=== PATIENT | female | born 1950 | race Caucasian/White ===

== ENCOUNTER → 2018-04-08 | Outpatient (CLI) | payer MEDICARE, OTHER ==
[~2018-04-08] MED LIST: AMINOPHYLLIN200 MG PO; INSULIN-HUMA100 U/ML SC; JANUVIA100 MG PO; LEVEMIR100 U/ML SC; LIPITOR10 MG PO; LISINOPRIL2.5 MG PO; NADOLOL20 MG PO; PAXIL20 MG PO; SYNTHROID,LEV100 MCG PO; ZYLOPRIM100 MG PO
[2018-04-08 12:05] LABS: BASO % 0.6 % (0.0-1.0); EOS # 0.1 10*3/uL (0.0-0.4); HEMATOCRIT 36.6 % (37.0-47.0); HEMOGLOBIN 11.7 g/dl (12.0-16.0); LYMPH # 2.1 10*3/uL (1.3-4.4); MEAN CELL VOLUME 99.2 fl (81.0-99.0); MEAN CORPUSCULAR HGB 31.7 pg (27.0-31.0); MEAN PLATELET VOLUME 9.8 fl (9.6-12.3); MONO # 0.5 10*3/uL (0.1-1.0); MONO % 6.4 % (3.0-9.0); NEUT # 4.4 10*3/uL (2.3-7.9); NEUT % 61.7 % (47.0-73.0); PLATELET COUNT AUTOMATED 303 10*3/uL (130-400); RED BLOOD COUNT 3.69 10*6/uL (4.10-5.10); RED CELL DISTRI WIDTH 13.2 % (0-14.5); WHITE BLOOD COUNT 7.1 10*3/uL (4.8-10.8)
[2018-04-08 12:31] LABS: ALBUMIN 3.9 gm/dl (3.1-4.5); CREATININE 1.23 mg/dL (0.55-1.02); TOTAL PROTEIN 7.3 gm/dL (6.4-8.2)
== END | disposition home or self-care (01) ==
LOC: LAB 11:16
PROVIDERS: Student in an Organized Health Care Education/Training Program
DX: A04.72 Enterocolitis due to Clostridium difficile, not specified as recurrent (principal)

== ENCOUNTER → 2018-05-15 | Outpatient (CLI) | payer MEDICARE, OTHER ==
[2018-05-15 13:18] LABS: ALBUMIN 3.8 gm/dl (3.1-4.5); CREATININE 1.52 mg/dL (0.55-1.02); POTASSIUM 4.8 mmol/L (3.5-5.1); TOTAL PROTEIN 6.9 gm/dL (6.4-8.2)
[2018-05-15 13:24] LABS: FREE T4 1.43 ng/dl (0.76-1.46); THYROID STIM HORMONE (HS) 0.326 uIU/ml (0.358-4.75)
[2018-05-16 07:11] LABS: FREE T3 010389 2.2 pg/mL (2.0-4.4)
== END | disposition home or self-care (01) ==
LOC: LAB 12:20
DX: C73 Malignant neoplasm of thyroid gland (principal); E11.65 Type 2 diabetes mellitus with hyperglycemia; E78.2 Mixed hyperlipidemia; E03.9 Hypothyroidism, unspecified

== ENCOUNTER → 2019-07-28 | Outpatient (CLI) | payer MEDICARE, OTHER | END | disposition home or self-care (01) | LOC: RAD 11:30 → LAB 12:07 | DX: Z13.820 Encounter for screening for osteoporosis (principal); E11.3513 Type 2 diabetes mellitus with proliferative diabetic retinopathy with macular edema, bilateral; E03.9 Hypothyroidism, unspecified; G62.9 Polyneuropathy, unspecified; E55.9 Vitamin D deficiency, unspecified; E78.2 Mixed hyperlipidemia; R79.89 Other specified abnormal findings of blood chemistry; I10 Essential (primary) hypertension; R79.82 Elevated C-reactive protein (CRP); Z78.0 Asymptomatic menopausal state; Z90.710 Acquired absence of both cervix and uterus ==

== ENCOUNTER → 2019-08-14 | Outpatient (CLI) | payer MEDICARE, OTHER ==
[2019-08-14 13:27] LABS: BASO # 0.1 10*3/uL (0.0-0.1); BASO % 0.9 % (0.0-1.0); EOS # 0.1 10*3/uL (0.0-0.4); EOS % 2.1 % (1.0-4.0); HEMOGLOBIN 11.8 g/dl (12.0-16.0); LYMPH % 35.4 % (27.0-41.0); MEAN CORPUSCULAR HGB 31.9 pg (27.0-31.0); MEAN CORPUSCULAR HGB CONC 31.9 g/dl (33.0-37.0); MEAN PLATELET VOLUME 10.1 fl (9.6-12.3); MONO # 0.5 10*3/uL (0.1-1.0); MONO % 8.4 % (3.0-9.0); PLATELET COUNT AUTOMATED 304 10*3/uL (130-400); RED CELL DISTRI WIDTH 12.8 % (0-14.5); WHITE BLOOD COUNT 5.7 10*3/uL (4.8-10.8)
[2019-08-14 13:51] LABS: ALBUMIN 3.7 gm/dl (3.1-4.5); CREATININE 1.48 mg/dL (0.55-1.02); FREE T4 1.13 ng/dl (0.76-1.46); TOTAL PROTEIN 7.2 gm/dL (6.4-8.2)
[2019-08-14 14:48] LABS: VITAMIN D, 25-HYDROXY 32.9 ng/mL (30-100)
[2019-08-14 14:49] LABS: PTH INTACT 71.2 pg/mL (18.5-88.0)
[2019-08-15 11:10] LABS: CREATININE,URINE 46.3 mg/dL (Not Estab.); MICRO ALBUMIN/CRE RATIO 172.1 (0.0-30.0)
== END | disposition home or self-care (01) ==
LOC: LAB 12:18
PROVIDERS: Internal Medicine Endocrinology, Diabetes & Metabolism; Nurse Practitioner Family
DX: E03.9 Hypothyroidism, unspecified (principal); E11.3513 Type 2 diabetes mellitus with proliferative diabetic retinopathy with macular edema, bilateral; E55.9 Vitamin D deficiency, unspecified; G62.9 Polyneuropathy, unspecified; R79.82 Elevated C-reactive protein (CRP)

== ENCOUNTER → 2019-08-20 | Outpatient (CLI) | payer MEDICARE, OTHER | END | disposition home or self-care (01) | LOC: LAB 19:04 | PROVIDERS: Nurse Practitioner Family | DX: R19.7 Diarrhea, unspecified (principal) ==

== ENCOUNTER → 2019-12-23 | Outpatient (CLI) | payer MEDICARE, OTHER ==
[~2019-12-23] MED LIST changes: +AMLODIPINE BESYL5 MG PO; +BETIMOL5 M1 OP; +CYTOMEL5 MCG PO; +HUMALOG100 UNIT/2 SQ; -INSULIN-HUMA100 U/ML SC; +PROTONIX40 MG PO; +ROSUVASTATIN CAL5 MG PO; -SYNTHROID,LEV100 MCG PO; +Synthroid,Levo75 MCG PO; +TRESIBA100 UNIT/1 SQ; +XALATAN 0.005%2.5 ML INTRAOC
[2019-12-23 15:17] LABS: IRON 68 ug/dL (50-170); TOTAL IRON BINDING CAPACITY 258 ug/dl (250-450)
[2019-12-23 15:19] LABS: ALBUMIN 3.8 gm/dl (3.1-4.5); CREATININE 1.49 mg/dL (0.55-1.02); TOTAL PROTEIN 7.1 gm/dL (6.4-8.2)
[2019-12-23 15:23] LABS: FREE T4 1.27 ng/dl (0.76-1.46); THYROID STIM HORMONE (HS) 0.791 uIU/ml (0.358-4.75)
[2019-12-23 15:27] LABS: VITAMIN D, 25-HYDROXY 44.1 ng/mL (30-100)
[2019-12-24 10:11] LABS: CREATININE,URINE 111.9 mg/dL (Not Estab.)
== END | disposition home or self-care (01) ==
LOC: LAB 13:45
PROVIDERS: Internal Medicine Endocrinology, Diabetes & Metabolism; Nurse Practitioner Family
DX: E11.3513 Type 2 diabetes mellitus with proliferative diabetic retinopathy with macular edema, bilateral (principal); E03.9 Hypothyroidism, unspecified; E55.9 Vitamin D deficiency, unspecified; D64.9 Anemia, unspecified

== ENCOUNTER 2019-12-26 16:06 | Inpatient (IN) | payer MEDICARE, OTHER ==
[~2019-12-26] VITALS: Ht 167.6 cm; Wt 78.0 kg
[~2019-12-26 16:06] MED LIST changes: -AMLODIPINE BESYL5 MG PO; -BETIMOL5 M1 OP; -CYTOMEL5 MCG PO; -PROTONIX40 MG PO; -ROSUVASTATIN CAL5 MG PO; -TRESIBA100 UNIT/1 SQ; -XALATAN 0.005%2.5 ML INTRAOC
[2019-12-26 16:17] VITALS: BP 107/53
[2019-12-26 16:19] VITALS: BP 159/72
--- NOTE | 2019-12-26 18:13 | NUR ---
PT UNABLE TO URINATE AT THIS TIME. URINE CUP PROVIDED. IV FLUIDS INFUSING.
[2019-12-26 18:15] LABS: BASO # 0.1 10*3/uL (0.0-0.1); BASO % 0.6 % (0.0-1.0); EOS # 0.1 10*3/uL (0.0-0.4); EOS % 0.8 % (1.0-4.0); HEMATOCRIT 37.9 % (37.0-47.0); HEMOGLOBIN 12.2 g/dl (12.0-16.0); LYMPH # 1.2 10*3/uL (1.3-4.4); LYMPH % 14.4 % (27.0-41.0); MEAN CELL VOLUME 97.7 fl (81.0-99.0); MEAN CORPUSCULAR HGB 31.4 pg (27.0-31.0); MEAN CORPUSCULAR HGB CONC 32.2 g/dl (33.0-37.0); MEAN PLATELET VOLUME 9.8 fl (9.6-12.3); MONO # 0.5 10*3/uL (0.1-1.0); MONO % 5.6 % (3.0-9.0); NEUT # 6.7 10*3/uL (2.3-7.9); NEUT % 78.4 % (47.0-73.0); PLATELET COUNT AUTOMATED 322 10*3/uL (130-400); RED BLOOD COUNT 3.88 10*6/uL (4.10-5.10); RED CELL DISTRI WIDTH 12.2 % (0-14.5); WHITE BLOOD COUNT 8.6 10*3/uL (4.8-10.8)
[2019-12-26 18:32] LABS: ALKALINE PHOSPHATASE 94 U/L (45-117); BUN 39 mg/dl (7-24); CHLORIDE 108 mmol/L (98-107); CREATININE 1.31 mg/dL (0.55-1.02); LIPASE 277 U/L (73-393); SGOT/AST 231 IU/L (3-35); SGPT/ALT 132 U/L (12-78); SODIUM 141 mmol/L (136-145); TOTAL PROTEIN 7.2 gm/dL (6.4-8.2)
[2019-12-26 18:34] LABS: ACT PARTIAL THROMBO TIME 25.1 SECONDS (20.0-32.1); INTERNATIONAL NORM RATIO 0.9 (2.0-3.5); TROPONIN I < 0.015 ng/ml (<0.045)
--- NOTE | 2019-12-26 18:44 | NUR ---
PT NOTES SHE MAY BE ABLE TO URINATE SOON, BUT STILL UNABLE AT THIS TIME.
[2019-12-26 20:00] VITALS: BP 182/80
[2019-12-26 21:30] VITALS: BP 182/80
--- NOTE | 2019-12-26 21:30 | NUR ---
Time: 2129 A 69 year old FEMALE admitted to 5E under services of MISTY REYNOSO DO. Pt. arrived via bed from ER. Chief complaint: ABDOMINAL PAIN. JERMAN JOSEPH
--- NOTE | 2019-12-26 21:42 | NUR ---
DR. GALLARDO CALLED AWARE OF PT CONSULT. OK FOR REGULAR DIET IF NO NAUSEA.
[2019-12-26] MEDS ORDERED: TRESIBA100 UNIT/1 SQ (22:21)
[2019-12-26] MEDS ORDERED: XALATAN 0.005%2.5 ML INTRAOC (22:22)
[2019-12-26] MEDS ORDERED: BETIMOL5 M1 OP (22:22)
[2019-12-26] MEDS ORDERED: CYTOMEL5 MCG PO (22:23)
--- NOTE | 2019-12-26 22:40 | NUR ---
DR. JOHNSON ON THE FLOOR TO SEE PT. AWARE PT MEDICATIONS VERIFIED AND BP 182/80 MANUALLY.
--- NOTE | 2019-12-26 23:10 | NUR ---
RESTING IN BED TALKING WITH DR. JOHNSON. IVF INFUSING WITH NO PROBLEM. BSG-203, SEE EMAR. CALL LIGHT IN REACH.
[2019-12-26 23:57] VITALS: BP 185/72
[2019-12-27] VITALS (8 sets, daily range): BP systolic 144–182; BP diastolic 60–88
--- NOTE | 2019-12-27 00:05 | NUR ---
PT ASSISTED TO BATHROOM AND BACK TO BED WITH STANDBY ASSIST. RESTING BACK IN BED. BP 182/88, PER DR. EASON REQUEST HE WAS MADE AWARE.
[2019-12-27 00:30] LABS: BILIRUBIN NEGATIVE (NEGATIVE); BLOOD TRACE-INTACT (NEGATIVE); CLARITY CLEAR (CLEAR); COLOR YELLOW (YELLOW); GLUCOSE NEGATIVE (NEGATIVE); KETONE NEGATIVE (NEGATIVE); LEUKO ESTERASE NEGATIVE (NEGATIVE); NITRITE NEGATIVE (NEGATIVE); UROBILINOGEN 0.2 E.U./dl (0.2-1.0)
--- NOTE | 2019-12-27 00:34 | NUR ---
CALLED DR. EASON WITH BP OF 178/80. ORDER TAKEN AND REVIEWED.
--- NOTE | 2019-12-27 01:10 | NUR ---
CALLED [facility] TO VERIFY MEDICATION NEEDED TO GIVE. GAVE HYDRALAZINE IV PER ORDER, SEE EMAR. PT TOLERATED. WILL MONITOR. CALL LIGHT IN REACH.
--- NOTE | 2019-12-27 06:00 | NUR ---
PT TOLERATED ROUTINE MED WITH NO PROBLEM. IVF INFUSING WITH NO PROBLEM. CALL LIGHT IN REACH.
[2019-12-27 06:58] LABS: BASO % 0.4 % (0.0-1.0); EOS # 0.1 10*3/uL (0.0-0.4); HEMATOCRIT 33.4 % (37.0-47.0); HEMOGLOBIN 10.9 g/dl (12.0-16.0); LYMPH # 1.6 10*3/uL (1.3-4.4); LYMPH % 31.6 % (27.0-41.0); MEAN CELL VOLUME 96.8 fl (81.0-99.0); MEAN CORPUSCULAR HGB 31.6 pg (27.0-31.0); MEAN CORPUSCULAR HGB CONC 32.6 g/dl (33.0-37.0); MEAN PLATELET VOLUME 10.1 fl (9.6-12.3); MONO # 0.6 10*3/uL (0.1-1.0); MONO % 11.1 % (3.0-9.0); NEUT # 2.8 10*3/uL (2.3-7.9); NEUT % 55.7 % (47.0-73.0); PLATELET COUNT AUTOMATED 296 10*3/uL (130-400); RED BLOOD COUNT 3.45 10*6/uL (4.10-5.10); RED CELL DISTRI WIDTH 12.3 % (0-14.5)
[2019-12-27 07:29] LABS: POTASSIUM 3.8 mmol/L (3.5-5.1)
[2019-12-27 07:37] LABS: ALBUMIN 3.3 gm/dl (3.1-4.5); CREATININE 1.21 mg/dL (0.55-1.02); PHOSPHOROUS 2.7 mg/dL (2.5-4.9); TOTAL PROTEIN 6.2 gm/dL (6.4-8.2)
--- NOTE | 2019-12-27 10:26 | NUR ---
Aitchbone Breaker in to talk to patient. Patient states lives [facility] with . There are 2 steps in the home. Physician: Pallavi Plaza CNP Pharmacy: [facility] Home health services: no Patient's level of ADLs: INDEPENDENT Patient has working utilities: yes DME: no Follow-up physician's appointment after d/c: yes Does patient want to access PORTAL?: no Discharge plan Patient resides at home with her . Pt is independent with ADLS. Anticipate pt returning home with no needs. JULY LEIGH
--- NOTE | 2019-12-27 21:32 | NUR ---
CALLED DR. MARTINEZ MADE AWARE PT BP 172/84 ALSO PT WAS ANXIOUS ABOUT NOT HAVING INSULIN SINCE ADMISSION. WHICH SEEMS TO BE MAKING HER BP ELEVATE. ORDERS TAKEN AND REVIEWED.
--- NOTE | 2019-12-27 22:14 | NUR ---
CALLED DR. MARTINEZ MADE AWARE BP 180/86, ORDERS TAKEN AND REVIEWED.
--- NOTE | 2019-12-27 22:40 | NUR ---
ADMINISTERED HYDRALAZINE IV PER ORDER, SEE EMAR. IVF INFUSING WITH NO PROBLEM. CALL LIGHT IN REACH. WILL CON'T TO MONITOR.
[2019-12-28] VITALS: BP 128/77; BP 167/73
--- NOTE | 2019-12-28 | NUR ---
PT SLEEPING IN BED. RESP-EASY AND REGULAR. IVF INFUSING WITH NO PROBLEM. CALL LIGHT IN REACH. SEE SHIFT ASSESSMENT.
--- NOTE | 2019-12-28 06:00 | NUR ---
TOLERATED ROUTINE MED WITH NO PROBLEM. BSG-142, SEE EMAR. NO C/O AT THIS TIME. CALL LIGHT IN REACH. BED ALARM ON.
[2019-12-28 06:38] LABS: BASO % 0.7 % (0.0-1.0); EOS # 0.1 10*3/uL (0.0-0.4); EOS % 0.9 % (1.0-4.0); HEMATOCRIT 32.5 % (37.0-47.0); HEMOGLOBIN 10.7 g/dl (12.0-16.0); LYMPH # 1.3 10*3/uL (1.3-4.4); MEAN CELL VOLUME 97.9 fl (81.0-99.0); MEAN CORPUSCULAR HGB 32.2 pg (27.0-31.0); MEAN CORPUSCULAR HGB CONC 32.9 g/dl (33.0-37.0); MONO # 0.7 10*3/uL (0.1-1.0); MONO % 12.9 % (3.0-9.0); NEUT # 3.6 10*3/uL (2.3-7.9); NEUT % 62.3 % (47.0-73.0); PLATELET COUNT AUTOMATED 270 10*3/uL (130-400); RED BLOOD COUNT 3.32 10*6/uL (4.10-5.10); RED CELL DISTRI WIDTH 12.6 % (0-14.5); WHITE BLOOD COUNT 5.8 10*3/uL (4.8-10.8)
[2019-12-28 06:54] LABS: ALBUMIN 3.1 gm/dl (3.1-4.5); CREATININE 1.23 mg/dL (0.55-1.02); TOTAL PROTEIN 5.8 gm/dL (6.4-8.2)
[2019-12-28 08:00] VITALS: BP 117/88; BP 120/88
--- NOTE | 2019-12-28 08:08 | NUR ---
24 HR chart check completed.
--- NOTE | 2019-12-28 09:00 | NUR ---
DR ADAME DISCUSSING PLAN OF CARE WITH PATIENT
--- NOTE | 2019-12-28 09:30 | NUR ---
RESTING IN BED WITH NO ACUTE DISTRESS NOTED. RESPIRATIONS EASY. LUNGS DIMINISHED, CLEAR. PULSE OX 98% RA. ABD SOFT WITH HYPERACTIVE BOWEL SOUNDS, DENIES N/V. DIARRHEA 12/27 BUT NONE TODAY. IV FLUIDS INFUSING PER ORDER. CALL LIGHT WITHIN REACH. NO VOICED COMPLAINTS
--- NOTE | 2019-12-28 09:35 | NUR ---
PATIENT VOICES DESIRE FOR DISCHARGE - LABS AND PLAN OF CARE REVIEWED WITH PATIENT TO EXPLAIN NEED TO REMAIN IN-PT. PATIENT CONCERNED WITH TAKING NEWLY PRESCRIBED NORVASC. EXPLAINED TO PATIENT WE COULD ADMINISTER ROUTINE 1000 MEDS, RE-EVAL BP AT 1200 AND DETERMINE WHETHER TO ADMINISTER NORVASC AT THAT TIME, PATIENT AGREEABLE. WILL MONITOR
--- NOTE | 2019-12-28 10:30 | NUR ---
DR FITZPATRICK AND RESIDENTS HERE TO ASSESS PATIENT AND DISCUSS PLAN OF CARE
[2019-12-28] MEDS ORDERED: ROSUVASTATIN CAL5 MG PO (11:44)
[2019-12-28 12:00] VITALS: BP 138/82; BP 176/71
--- NOTE | 2019-12-28 12:30 | NUR ---
BP 138/82. PATIENT DECLINES NORVASC. INSISTS BP ELEVATED D/T STRESS OF BEING IN HOSPITAL. WILL CONTINUE TO MONITOR BP
--- NOTE | 2019-12-28 13:00 | NUR ---
VISITING WITH . NO DISTRESS NOTED. IV FLUIDS MAINTAINED.
--- NOTE | 2019-12-28 14:00 | NUR ---
ATTEMPTED TO REACH DR TRUONG FOR CONSULT. PATIENT REQUESTING D/C. WILL F/U OUT-PT WITH OF CHOICE
[2019-12-28] MEDS ORDERED: AMLODIPINE BESYL5 MG PO (15:30)
[2019-12-28 16:00] VITALS: BP 177/69
--- NOTE | 2019-12-28 16:30 | NUR ---
DISCHARGE INSTRUCTIONS REVIEWED WITH PATIENT AND . STRESSED IMPORTANCE OF FOLLOW-UP CARE AND LABS IN AM, PATIENT VOICED UNDERSTANDING
--- NOTE | 2019-12-28 16:50 | NUR ---
Discharge instructions reviewed with patient/family. Patient receptive and verbalizes understanding. Written instructions given to patient/family. PATIENT DISCHARGED VIA WC IN CARE OF . LEAH QUAN
== END 2019-12-28 17:06 | disposition home or self-care (01) | DRG 446 ==
LOC: ED 16:06 → EDHOLD 19:35 → 5E 20:12
PROVIDERS: Emergency Medicine; Internal Medicine; Student in an Organized Health Care Education/Training Program; ADMIT Emergency Medicine
DX: K80.20 Calculus of gallbladder without cholecystitis without obstruction (principal); R74.0 Nonspecific elevation of levels of transaminase and lactic acid dehydrogenase [LDH]; I16.0 Hypertensive urgency; E86.0 Dehydration; D72.9 Disorder of white blood cells, unspecified; D72.810 Lymphocytopenia; E87.8 Other disorders of electrolyte and fluid balance, not elsewhere classified; K83.8 Other specified diseases of biliary tract; R73.9 Hyperglycemia, unspecified; N20.0 Calculus of kidney; N18.3 Chronic kidney disease, stage 3 (moderate); E78.5 Hyperlipidemia, unspecified; I12.9 Hypertensive chronic kidney disease with stage 1 through stage 4 chronic kidney disease, or unspecified chronic kidney disease; G62.9 Polyneuropathy, unspecified; Z88.1 Allergy status to other antibiotic agents; Z90.710 Acquired absence of both cervix and uterus; Z87.440 Personal history of urinary (tract) infections; Z98.49 Cataract extraction status, unspecified eye; Z83.79 Family history of other diseases of the digestive system; Z79.899 Other long term (current) drug therapy

== ENCOUNTER → 2019-12-29 | Outpatient (CLI) | payer MEDICARE, OTHER ==
[~2019-12-29] MED LIST changes: +AMLODIPINE BESYL5 MG PO; +BETIMOL5 M1 OP; +CYTOMEL5 MCG PO; +PROTONIX40 MG PO; +ROSUVASTATIN CAL5 MG PO; +TRESIBA100 UNIT/1 SQ; +XALATAN 0.005%2.5 ML INTRAOC
[2019-12-29 10:07] LABS: BASO # 0.1 10*3/uL (0.0-0.1); BASO % 0.9 % (0.0-1.0); EOS # 0.1 10*3/uL (0.0-0.4); EOS % 0.9 % (1.0-4.0); HEMATOCRIT 35.7 % (37.0-47.0); HEMOGLOBIN 11.5 g/dl (12.0-16.0); LYMPH # 1.7 10*3/uL (1.3-4.4); LYMPH % 26.2 % (27.0-41.0); MEAN CELL VOLUME 98.3 fl (81.0-99.0); MEAN CORPUSCULAR HGB 31.7 pg (27.0-31.0); MEAN CORPUSCULAR HGB CONC 32.2 g/dl (33.0-37.0); MEAN PLATELET VOLUME 10.1 fl (9.6-12.3); MONO % 15.2 % (3.0-9.0); NEUT # 3.7 10*3/uL (2.3-7.9); NEUT % 56.3 % (47.0-73.0); PLATELET COUNT AUTOMATED 296 10*3/uL (130-400); RED BLOOD COUNT 3.63 10*6/uL (4.10-5.10); RED CELL DISTRI WIDTH 12.8 % (0-14.5); WHITE BLOOD COUNT 6.5 10*3/uL (4.8-10.8)
[2019-12-29 10:43] LABS: ALBUMIN 3.4 gm/dl (3.1-4.5); CREATININE 1.71 mg/dL (0.55-1.02); POTASSIUM 4.1 mmol/L (3.5-5.1)
[2019-12-29 10:45] LABS: TOTAL PROTEIN 6.4 gm/dL (6.4-8.2)
== END | disposition home or self-care (01) ==
LOC: LAB 09:28
PROVIDERS: Student in an Organized Health Care Education/Training Program
DX: K80.50 Calculus of bile duct without cholangitis or cholecystitis without obstruction (principal)

== ENCOUNTER 2019-12-30 12:22 | Inpatient (IN) | payer MEDICARE, OTHER ==
[~2019-12-30] VITALS: Ht 167.6 cm; Wt 74.4 kg
[~2019-12-30 12:22] MED LIST changes: -PROTONIX40 MG PO
[2019-12-30 12:45] VITALS: BP 163/69
[2019-12-30 16:00] VITALS: BP 185/72
[2019-12-30 17:30] VITALS: BP 180/94
[2019-12-30 19:40] VITALS: BP 174/86
[2019-12-30 22:00] VITALS: BP 154/88
[2019-12-31] VITALS (11 sets, daily range): BP systolic 146–190; BP diastolic 68–91
[2019-12-31 06:20] LABS: BASO # 0.1 10*3/uL (0.0-0.1); BASO % 1.2 % (0.0-1.0); EOS # 0.1 10*3/uL (0.0-0.4); EOS % 1.6 % (1.0-4.0); HEMATOCRIT 32.7 % (37.0-47.0); HEMOGLOBIN 10.7 g/dl (12.0-16.0); LYMPH # 1.4 10*3/uL (1.3-4.4); LYMPH % 27.7 % (27.0-41.0); MEAN CELL VOLUME 95.9 fl (81.0-99.0); MEAN CORPUSCULAR HGB 31.4 pg (27.0-31.0); MEAN CORPUSCULAR HGB CONC 32.7 g/dl (33.0-37.0); MEAN PLATELET VOLUME 10.3 fl (9.6-12.3); MONO # 0.8 10*3/uL (0.1-1.0); NEUT # 2.6 10*3/uL (2.3-7.9); NEUT % 52.7 % (47.0-73.0); PLATELET COUNT AUTOMATED 296 10*3/uL (130-400); RED BLOOD COUNT 3.41 10*6/uL (4.10-5.10); RED CELL DISTRI WIDTH 13.2 % (0-14.5); WHITE BLOOD COUNT 4.9 10*3/uL (4.8-10.8)
[2019-12-31 06:56] LABS: ALBUMIN 3.2 gm/dl (3.1-4.5); POTASSIUM 3.5 mmol/L (3.5-5.1)
[2019-12-31 07:01] LABS: CREATININE 1.27 mg/dL (0.55-1.02); PHOSPHOROUS 2.5 mg/dL (2.5-4.9)
[2020-01-01] VITALS: BP 153/76
[2020-01-01 06:50] LABS: BASO # 0.1 10*3/uL (0.0-0.1); BASO % 0.9 % (0.0-1.0); EOS # 0.1 10*3/uL (0.0-0.4); EOS % 0.9 % (1.0-4.0); HEMATOCRIT 32.3 % (37.0-47.0); HEMOGLOBIN 10.2 g/dl (12.0-16.0); LYMPH # 1.4 10*3/uL (1.3-4.4); LYMPH % 24.4 % (27.0-41.0); MEAN CELL VOLUME 97.6 fl (81.0-99.0); MEAN CORPUSCULAR HGB 30.8 pg (27.0-31.0); MEAN CORPUSCULAR HGB CONC 31.6 g/dl (33.0-37.0); MONO # 0.7 10*3/uL (0.1-1.0); MONO % 11.9 % (3.0-9.0); NEUT # 3.4 10*3/uL (2.3-7.9); NEUT % 61.4 % (47.0-73.0); PLATELET COUNT AUTOMATED 309 10*3/uL (130-400); RED BLOOD COUNT 3.31 10*6/uL (4.10-5.10); RED CELL DISTRI WIDTH 13.4 % (0-14.5); WHITE BLOOD COUNT 5.5 10*3/uL (4.8-10.8)
[2020-01-01 07:38] LABS: ALBUMIN 3.1 gm/dl (3.1-4.5); BILIRUBIN, DIRECT 2.1 mg/dL (0.0-0.2); TOTAL PROTEIN 5.8 gm/dL (6.4-8.2)
[2020-01-01 12:00] VITALS: BP 157/68
[2020-01-01] MEDS ORDERED: PROTONIX40 MG PO (14:48)
== END 2020-01-01 15:47 | disposition home or self-care (01) | DRG 445 ==
LOC: 5E 12:22
PROVIDERS: Registered Nurse; ADMIT Internal Medicine
PROC: 0F798DZ Dilation of Common Bile Duct with Intraluminal Device, Via Natural or Artificial Opening Endoscopic (ICD-10-PCS; principal; 2019-12-31)
PROC: BF141ZZ Fluoroscopy of Gallbladder, Bile Ducts and Pancreatic Ducts using Low Osmolar Contrast (ICD-10-PCS; principal; 2019-12-31)
DX: K80.63 Calculus of gallbladder and bile duct with acute cholecystitis with obstruction (principal); E44.0 Moderate protein-calorie malnutrition; N18.3 Chronic kidney disease, stage 3 (moderate); E11.22 Type 2 diabetes mellitus with diabetic chronic kidney disease; E11.65 Type 2 diabetes mellitus with hyperglycemia; E03.9 Hypothyroidism, unspecified; E78.5 Hyperlipidemia, unspecified; M10.9 Gout, unspecified; I12.9 Hypertensive chronic kidney disease with stage 1 through stage 4 chronic kidney disease, or unspecified chronic kidney disease; F41.9 Anxiety disorder, unspecified; Z68.26 Body mass index [BMI] 26.0-26.9, adult; Z98.49 Cataract extraction status, unspecified eye; Z88.1 Allergy status to other antibiotic agents; Z88.8 Allergy status to other drugs, medicaments and biological substances; Z83.79 Family history of other diseases of the digestive system; Z79.4 Long term (current) use of insulin; Z79.899 Other long term (current) drug therapy; R74.0 Nonspecific elevation of levels of transaminase and lactic acid dehydrogenase [LDH]

== ENCOUNTER 2020-02-15 20:24 | Inpatient (IN) | payer MEDICARE, OTHER ==
[~2020-02-15] VITALS: Ht 167.6 cm; Wt 68.3 kg
[~2020-02-15 20:24] MED LIST changes: +PROTONIX40 MG PO
[2020-02-15 20:52] VITALS: BP 148/70
[2020-02-15 21:29] VITALS: BP 132/67
--- NOTE | 2020-02-15 21:34 | NUR ---
PT HAD LARGE EMESIS OF APPROX 250 CC GREENISH LIQUID. JEAN PAUL VALLEJO RN.
[2020-02-15 22:16] LABS: HEMATOCRIT 30.6 % (37.0-47.0); MEAN CELL VOLUME 91.6 fl (81.0-99.0); MEAN CORPUSCULAR HGB 30.2 pg (27.0-31.0); MEAN PLATELET VOLUME 10.8 fl (9.6-12.3); PLATELET COUNT AUTOMATED 241 10*3/uL (130-400); RED BLOOD COUNT 3.34 10*6/uL (4.10-5.10); RED CELL DISTRI WIDTH 13.8 % (0-14.5); WHITE BLOOD COUNT 25.7 10*3/uL (4.8-10.8)
[2020-02-15 22:22] VITALS: BP 130/62
--- NOTE | 2020-02-15 22:22 | NUR ---
PT STATES SHE IS FEELING BETTER AT THIS TIME. IV INFUSING JEAN PAUL VALLEJO RN.
[2020-02-15 22:31] LABS: ACT PARTIAL THROMBO TIME 30.8 SECONDS (20.0-32.1); INTERNATIONAL NORM RATIO 1.1 (2.0-3.5)
[2020-02-15 22:31] LABS: BILIRUBIN NEGATIVE (NEGATIVE); BLOOD NEGATIVE (NEGATIVE); CLARITY SL CLOUDY (CLEAR); COLOR YELLOW (YELLOW); GLUCOSE NEGATIVE (NEGATIVE); KETONE NEGATIVE (NEGATIVE); LEUKO ESTERASE NEGATIVE (NEGATIVE); NITRITE NEGATIVE (NEGATIVE); UROBILINOGEN 0.2 E.U./dl (0.2-1.0)
[2020-02-15 22:34] LABS: ALBUMIN 1.9 gm/dl (3.1-4.5); CREATININE 2.41 mg/dL (0.55-1.02); POTASSIUM 3.8 mmol/L (3.5-5.1); TOTAL PROTEIN 6.3 gm/dL (6.4-8.2); TROPONIN I 0.029 ng/ml (<0.045)
[2020-02-15 22:35] LABS: BACTERIA 2+
[2020-02-15 22:42] LABS: BURR CELLS FEW; PLATELET SUFFICIENCY NORMAL (NORMAL); TOTAL CELLS COUNTED 100 #CELLS
[2020-02-16] VITALS (14 sets, daily range): BP systolic 113–130; BP diastolic 50–83
--- NOTE | 2020-02-16 01:06 | NUR ---
CALLED IN. PATIENT NOT YET ON FLOOR, BUT NEW ORDERS RECEIVED.
--- NOTE | 2020-02-16 02:37 | NUR ---
Time: 224 A 69 year old FEMALE admitted to 4E under services of CARLA CESPEDES DO. Pt. arrived via stretcher from ER. Chief complaint: WEAKNESS, DX: BILOMA FOLLOWING SURGERY, HEPATIC ABSCESS ENA GUTIERREZ
[2020-02-16] MEDS ORDERED: CRESTOR5 MG PO (02:46)
--- NOTE | 2020-02-16 02:49 | NUR ---
MED REC UP TO DATE PER PT RECALL.
--- NOTE | 2020-02-16 06:04 | NUR ---
NOTIFIED OF BSG 304. QUESTIONED WHETHER TO ORDER PATIENT'S HOME MEDS OR SLIDING SCALE. PER ORDER HOSPITALIST SLIDING SCALE #2. ALSO DISCUSSED PATIENT'S "ALMOST FALL" 2 WEEKS AGO RESULTING IN L ANKLE INJURY. INSTRUCTED TO GET XRAYS OF PT'S L ANKLE.
[2020-02-16 06:05] LABS: HEMATOCRIT 29.2 % (37.0-47.0); MEAN CELL VOLUME 91.3 fl (81.0-99.0); MEAN CORPUSCULAR HGB 29.7 pg (27.0-31.0); MEAN CORPUSCULAR HGB CONC 32.5 g/dl (33.0-37.0); PLATELET COUNT AUTOMATED 232 10*3/uL (130-400); RED CELL DISTRI WIDTH 13.9 % (0-14.5); WHITE BLOOD COUNT 24.5 10*3/uL (4.8-10.8)
[2020-02-16 06:23] LABS: ALBUMIN 1.9 gm/dl (3.1-4.5); CREATININE 2.32 mg/dL (0.55-1.02); PHOSPHOROUS 5.5 mg/dL (2.5-4.9); POTASSIUM 3.9 mmol/L (3.5-5.1); TOTAL PROTEIN 6.3 gm/dL (6.4-8.2)
--- NOTE | 2020-02-16 06:43 | NUR ---
BSG 304. SLIDING SCALE CALLS FOR 15 UNITS. PT IS NPO. PT CONCERNED THAT 15 UNITS WILL DROP HER BS TOO LOW. PT NORMALLY TAKES 5 UNITS BRYAN TID-AC. AGREES ONLY TO TAKE 5 UNITS AT THIS TIME.
[2020-02-16 07:03] LABS: POLYCHROMASIA SLIGHT; TOTAL CELLS COUNTED 100 #CELLS
[2020-02-16 07:04] LABS: PLATELET SUFFICIENCY NORMAL (NORMAL)
[2020-02-16 07:05] LABS: VACUOLATION OF NEUTROPHILS SLIGHT
--- NOTE | 2020-02-16 08:31 | NUR ---
PT RESTING IN BED, EYES CLOSED NO DISTRESS NOTED/ CALL LIGHT WITHIN REACH WILL MONITOR
--- NOTE | 2020-02-16 09:44 | NUR ---
CALLED AND SPOKE WITH DR HERNANDEZ REGARDING CONSULT HE STATES THAT HE IS NOT SUPPOSE TO BE CONSULTED I ALSO SPOKE WITH REYNA REGARDING CONSULT
--- NOTE | 2020-02-16 10:09 | NUR ---
DR ORELLANA NOTIFIED OF XRAY OF ANKLE RESULTS
--- NOTE | 2020-02-16 10:25 | NUR ---
ATTEMPTED TO CALL DR GARCIA REGARDING CONSULT, XRAY RESULTS, POSITIVE BC X2 AWAITING CALL BACK
--- NOTE | 2020-02-16 11:10 | NUR ---
ATTEMPTED TO CALL REYNA X 2 FOR DIET ORDER AND TO NOTIFY OF POSITIVE BC
--- NOTE | 2020-02-16 11:35 | NUR ---
SPOKE WITH DR BEYER REGARDING PT DIET AND POSITIVE BC
--- NOTE | 2020-02-16 11:54 | NUR ---
SPOKE WITH DR GUZMAN RESIDENT REGARDING NEW CONSULT
--- NOTE | 2020-02-16 13:06 | NUR ---
DR GARCIA HERE TO SEE PT
--- NOTE | 2020-02-16 16:00 | NUR ---
FRANK FLUSHED ORDERED
--- NOTE | 2020-02-16 18:58 | NUR ---
DR SRINIVASAN NOTIFIED OF ANKLE FLUID RESULTS CALLED TO ME
--- NOTE | 2020-02-16 21:25 | NUR ---
PT REFUSING COVERAGE FOR BSG 263 DUE TO NPO STATUS. 30 CCs DRAINED FROM FRANK DRAIN. WILL IRRIGATE IN AM PER BID ORDER.
--- NOTE | 2020-02-16 23:06 | NUR ---
SCHEDULED PO ULTRAM ADMINISTERED PER ORDER. GIVEN WITH SMALL SIPS OF WATER. PT C/O PAIN IN ABD RATED 4/10. WILL MONITOR. CALL LIGHT IN REACH.
[2020-02-17] VITALS (10 sets, daily range): BP systolic 91–123; BP diastolic 46–57
--- NOTE | 2020-02-17 01:10 | NUR ---
PT ASLEEP IN BED. EASILY AROUSABLE. DENIES ANY NEEDS AT PRESENT TIME. WILL MONITOR. CALL LIGHT IN REACH.
--- NOTE | 2020-02-17 02:10 | NUR ---
NOTIFIED OF POSITIVE BC. NEW ORDERS RECEIVED FOR ANOTHER SET OF BLOOD CULTURES TO BE DRAWN.
--- NOTE | 2020-02-17 03:03 | NUR ---
GABRIELLA FROM LAB CALLED WITH CRITICAL RESULT OF POSITIVE AEROBIC BLOOD CULTURES FOR GRAM + COCCI IN CLUSTERS.
--- NOTE | 2020-02-17 03:06 | NUR ---
DR. MARTINEZ NOTIFIED OF POSITIVE BLOOD CULTURE RESULTS, NO ORDERS RECEIVED AT THIS TIME.
[2020-02-17 06:09] LABS: HEMATOCRIT 25.5 % (37.0-47.0); MEAN CELL VOLUME 91.1 fl (81.0-99.0); MEAN CORPUSCULAR HGB CONC 32.9 g/dl (33.0-37.0); MEAN PLATELET VOLUME 11.2 fl (9.6-12.3); PLATELET COUNT AUTOMATED 243 10*3/uL (130-400); RED CELL DISTRI WIDTH 14.4 % (0-14.5); WHITE BLOOD COUNT 24.6 10*3/uL (4.8-10.8)
--- NOTE | 2020-02-17 06:20 | NUR ---
PT AGREES TO TAKE ONLY 5 UNITS INSULIN FOR BSG 284. 5 UNITS ADMINISTERED. DRAIN EMPTIED. 10 CCs BROWN/YELLOW DRAINAGE NOTED. PIGTAIL DRAIN IRRIGATED WITH 20 CCs PER ORDER. 20 CCs RESIDUAL NOTED. FRANK DRAIN RECONNECTED. PT DENIES ANY PAIN/NEEDS AT THIS TIME. WILL MONITOR. CALL LIGHT IN REACH. BED ALARM INTACT.
[2020-02-17 06:36] LABS: CREATININE 3.45 mg/dL (0.55-1.02); POTASSIUM 3.8 mmol/L (3.5-5.1)
[2020-02-17 06:48] LABS: PLATELET SUFFICIENCY NORMAL (NORMAL); TOTAL CELLS COUNTED 100 #CELLS; TOXIC GRANULATION SLIGHT
--- NOTE | 2020-02-17 06:58 | NUR ---
CALLED AND REQUESTED PATIENT BE KEPT NPO FOR POSSIBLE I&D WASH OUT OF L ANKLE EITHER TODAY OR TOMORROW. NPO STATUS CONTINUED. AM SHIFT RN NOTIFIED.
--- NOTE | 2020-02-17 09:41 | NUR ---
DR. KURTZ'S ANSWERING SERVICE NOTIFIED OF CONSULT RE: WORSENING KIDNEY FAILURE.
--- NOTE | 2020-02-17 11:34 | NUR ---
Bar Host in to talk to patient. Patient states lives at HOME with . There are 15 steps in the home. Physician: JUAN RAMON CAVAZOS Pharmacy: [facility] services: NONE Patient's level of ADLs: INDEPENDENT Patient has working utilities: YES DME: NONE Follow-up physician's appointment after d/c: WILL BE MADE BY HOSPITALIST NURSE DIRECTOR ON DISCHARGE Does patient want to access PORTAL?: NO Discharge plan PT LIVES AT HOME WITH HER AND IS INDEPENDENT IN HER CARE. TALKED WITH PT ABOUT SNF STAY AFTER DISCHARGE BUT SHE REFUSES. DOES AGREE TO HOME HEALTH AND WHEN PROVIDED NAMES OF COMPANIES CHOSE [facility]. WILL OBTAIN ORDER AND SEND REFERRAL. PLAN IS TO RETURN HOME ON DISCHARGE WHEN MEDICALLY STABLE. WILL CONTINUE TO FOLLOW. PT STATES HER WILL TAKE HER HOME.. MANNY MOORE
--- NOTE | 2020-02-17 14:40 | NUR ---
PATIENT TO OR BY BED AT THIS TIME FOR SURGICAL PROCEDURE TO LEFT FOOT.
--- NOTE | 2020-02-17 18:39 | NUR ---
PATIENT RETURNED FROM OR PROCEDURE, SEE SHIFT ASSESSMENTS FOR DETAILS
--- NOTE | 2020-02-17 19:54 | NUR ---
PT MOVED FROM ROOM 415-2 TO ROOM 409 TO BE CLOSER TO NURSES STATION.
--- NOTE | 2020-02-17 20:29 | NUR ---
MULTIPLE RNs UNABLE TO UNSCREW FRANK DRAIN FROM PIGTAIL DRAIN TO IRRIGATE. IN ROOM AND ABLE TO DISCONNECT PARTS. PIGTAIL DRAIN FLUSHED WITH 20 CCs PER ORDER. 22 CCs OF YELLOW/ORANGE DRAINAGE PULLED BACK. FRANK DRAIN RECONNECTED AND BULB DEFLATED. WILL MONITOR. PATIENT LEFT WITH BED LOCKED IN LOW POSITION, BED ALARM INTACT, CALL LIGHT IN REACH.
--- NOTE | 2020-02-17 21:07 | NUR ---
PT'S UPDATED ON ROOM CHANGE.
--- NOTE | 2020-02-17 21:25 | NUR ---
PT REQUESTING TO CHANGE PASSCODE TO "SARA" WHILE ON PHONE WITH . PASSCODE CHANGED PER REQUEST. RN INSTRUCTED PATIENT TO LET FAMILY KNOW ABOUT THIS CHANGE, RN CANNOT RELEASE PATIENT INFORMATION WITHOUT THIS. PT VERBALIZES UNDERSTANDING. PT'S SON CIRILO CALLED IN. TRANSFERRED TO ROOM FOR PATIENT TO GIVE NEW PASSCODE.
--- NOTE | 2020-02-17 22:06 | NUR ---
PT UNABLE TO VOID. PER AM SHIFT RN, NO URINE OUTPUT FOR AM SHIFT. PT HAD BEEN IN SURGERY. NO OUTPUT VALUES CHARTED. BLADDER SCANNED FOR 335 AT THIS TIME. PT PLACED ON BEDPAN AND STILL UNABLE TO VOID. NOTIFIED. AWARE PT IS ON IVF AND RECEIVING ABX. DISCUSSED PROCEDURE TODAY. ALSO MADE AWARE 'S NOTE FOR POSSIBLE PAGE INSERTION TO MONITOR STRICT I&O IF UNABLE TO MEASURE URINE OUTPUT. NEW ORDER RECEIVED FOR PAGE CATH INSERTION.
--- NOTE | 2020-02-17 22:48 | NUR ---
16FR PAGE INSERTED PER ORDER UNDER STERILE PROCEDURE. PT TOLERATED WELL. 300 CCs URINE NOTED UPON INSERTION. URINE SPECIMENS SENT PER ORDER.
--- NOTE | 2020-02-17 22:48 | NUR ---
16FR PAGE INSERTED PER ORDER UNDER STERILE PROCEDURE. PT TOLERATED WELL. 300 CCs URINE NOTED UPON INSERTION. URINE SPECEMINS SENT PER ORDER.
[2020-02-17 23:00] LABS: URINE CREATININE RANDOM 86.8 mg/dL
[2020-02-17 23:23] LABS: BILIRUBIN NEGATIVE (NEGATIVE); BLOOD NEGATIVE (NEGATIVE); CLARITY SL CLOUDY (CLEAR); COLOR YELLOW (YELLOW); GLUCOSE NEGATIVE (NEGATIVE); KETONE NEGATIVE (NEGATIVE)
[2020-02-17 23:24] LABS: BACTERIA 2+; EPITHELIAL CELLS 16-20; LEUKO ESTERASE NEGATIVE (NEGATIVE); NITRITE NEGATIVE (NEGATIVE); RBC 0-2 rbc/hpf (0-2); URIC ACID CRYSTALS 4+; UROBILINOGEN 0.2 E.U./dl (0.2-1.0); WBC 0-2 wbc/hpf (0-5)
[2020-02-18] VITALS: BP 113/53
--- NOTE | 2020-02-18 04:43 | NUR ---
SUDHAKAR RUIZ Ewa [id number] Please refer to the physician's history and physical for past medical history, comorbid conditions, and allergies. Diagnosis: BILOMA FOLLOWING SURGERY HEPATIC ABSCESS Mohsen Score: 17,AT RISK WOUND DESCRIPTIONS: Dressing intact to left lower extremity. No strikethrough drainage noted. Wound Vac intact at 200mmHg continous low. Patient states she will follow up with podiatry when she leaves on the out patient setting. Surface the patient is resting on: Isoflex SKIN PREVENTION RECOMMENDATION: 1. Pressure redistribution support surface as appropriate 2. Elevate heels 3. Remove boots/TEDS every shift and reapply 4. Head of bed 30 degrees as tolerated 5. Assess nutrition and hydration 6. Manage moisture 7. Avoid the use of containment devices while in bed 8. Use absorptive products on surfaces limit layers of linens on bed 9. Turn and reposition every 1-2 hours in bed and every 1 hour in chair as tolerated 10. Weight shifts every 15 minutes while up in chair 11. Offloading with pillows or device to keep heels elevated off bed 12. Monitor skin at least every shift 13. Inspect under medical devices twice a day WOUND TREATMENT RECOMMENDATIONS: Clarify wound vac orders with podiatry in am.
[2020-02-18 04:45] VITALS: BP 100/48
--- NOTE | 2020-02-18 04:54 | NUR ---
DRAIN IRRIGATED WITH 20 CCs PER ORDER. 17 CCs RESIDUAL RETURNED. DENIES ANY PAIN IN ABD. RATES PAIN IN LLE 01/12. WILL MONITOR. BED LOCKED IN LOW POSITION, BED ALARM INTACT, CALL LIGHT IN REACH.
[2020-02-18 05:57] LABS: CREATININE 4.46 mg/dL (0.55-1.02); PHOSPHOROUS 6.5 mg/dL (2.5-4.9); POTASSIUM 3.9 mmol/L (3.5-5.1)
--- NOTE | 2020-02-18 06:16 | NUR ---
NOTIFIED OF ONLY 50 CCs URINE OUTPUT SINCE PAGE INSERTION. PT HAD 360 CCs ORAL INTAKE AND ROUGHLY 600 CCs IV INTAKE. NEW ORDER RECEIVED FOR 250 CC BOLUS. BOLUS SET TO RUN AT THIS TIME.
[2020-02-18 06:23] LABS: HEMATOCRIT 23.7 % (37.0-47.0); MEAN CELL VOLUME 92.9 fl (81.0-99.0); MEAN CORPUSCULAR HGB 29.8 pg (27.0-31.0); MEAN CORPUSCULAR HGB CONC 32.1 g/dl (33.0-37.0); PLATELET COUNT AUTOMATED 256 10*3/uL (130-400); RED BLOOD COUNT 2.55 10*6/uL (4.10-5.10); WHITE BLOOD COUNT 27.9 10*3/uL (4.8-10.8)
--- NOTE | 2020-02-18 06:40 | NUR ---
250 CC BOLUS COMPLETE. PT DOES NOT WANT ANY INSULIN AT THIS TIME.
--- NOTE | 2020-02-18 07:23 | NUR ---
SPOKE TO REGARDING WOUND VAC ORDER. NSS CLEANSING AGENT BLACK FOAM 200 MM HG HIGH INTENSITY CONTINOUS MODE OF THERAPY PODIATRY TO CHANGE DRESSING ALSO DISCUSSED BLL ULTRASOUND ORDERED FOR THIS AM AND PT'S L ANKLE WRAPPED. INSTRUCTED TO RETIME BLL ULTRASOUND FOR TOMORROW 02/18 @ 1100.
--- NOTE | 2020-02-18 07:27 | NUR ---
MADE AWARE OF CULTURE & SENSITIVITY RESULTS FOR BLOOD CULTURES FROM 02/15/20 AND 02/16/20.
[2020-02-18 07:39] LABS: TOTAL CELLS COUNTED 100 #CELLS; TOXIC GRANULATION MODERATE
[2020-02-18 07:40] LABS: PLATELET SUFFICIENCY NORMAL (NORMAL)
[2020-02-18 08:00] VITALS: BP 106/50
--- NOTE | 2020-02-18 08:14 | NUR ---
PT RESTING IN BED. EYES CLOSED. NO DISTRESS NOTED. WILL MONITOR
[2020-02-18 12:00] VITALS: BP 106/84
--- NOTE | 2020-02-18 12:41 | NUR ---
LIN WITH DR BEYER REGARDING GIVING PT COVERAGE FOR GLUCOSE OF 229 HOLDING COVERAGE FOR NOW AND MONITOR PER DR BEYER
--- NOTE | 2020-02-18 12:42 | NUR ---
DR BEYER NOTIFIED OF NO URINE OUTPUT SINCE 7AM
--- NOTE | 2020-02-18 14:03 | NUR ---
DR SWARTZ ALSO NOTIFIED OF PT LITTLE URINE OUTPUT
[2020-02-18 16:00] VITALS: BP 110/53
[2020-02-18 20:00] VITALS: BP 117/54
[2020-02-19] VITALS (7 sets, daily range): BP systolic 93–155; BP diastolic 46–87
[2020-02-19 06:02] LABS: BASO % 0.1 % (0.0-1.0); EOS # 0.1 10*3/uL (0.0-0.4); EOS % 0.4 % (1.0-4.0); HEMATOCRIT 25.8 % (37.0-47.0); LYMPH # 1.7 10*3/uL (1.3-4.4); LYMPH % 9.5 % (27.0-41.0); MEAN CELL VOLUME 94.2 fl (81.0-99.0); MEAN CORPUSCULAR HGB 29.6 pg (27.0-31.0); MEAN CORPUSCULAR HGB CONC 31.4 g/dl (33.0-37.0); MEAN PLATELET VOLUME 10.6 fl (9.6-12.3); MONO # 0.8 10*3/uL (0.1-1.0); MONO % 4.1 % (3.0-9.0); NEUT # 15.5 10*3/uL (2.3-7.9); NEUT % 84.7 % (47.0-73.0); PLATELET COUNT AUTOMATED 258 10*3/uL (130-400); RED BLOOD COUNT 2.74 10*6/uL (4.10-5.10); WHITE BLOOD COUNT 18.3 10*3/uL (4.8-10.8)
[2020-02-19 06:20] LABS: CREATININE 5.16 mg/dL (0.55-1.02); PHOSPHOROUS 6.2 mg/dL (2.5-4.9); POTASSIUM 3.7 mmol/L (3.5-5.1)
--- NOTE | 2020-02-19 06:50 | NUR ---
Received a call from , he requested output on FRANK drain. Nothing charted to call physician back after I assess patient.
--- NOTE | 2020-02-19 08:25 | NUR ---
Per request of spoke with Mago CASH for results. Mago is to contact [facility] Radiology.
--- NOTE | 2020-02-19 09:58 | NUR ---
Called Dr. Rodriguez to report 10cc of green fluid was removed from drain. Physician ordered STAT US and stated patient does not need to be NPO because he is assessing the fluid in the area. See new orders.
--- NOTE | 2020-02-19 11:00 | NUR ---
Called patients Damion because patient was exhibiting signs of confusion and I became concerned because she was refusing medical treatments that could result in unfavorable outcome patients well being. Patient stated that she "had no idea any of this was going on!" When I spoke to her he said "she does know about the debridement at 3 o'clock this morning." Damion stated patient has been having episodes of confusion for about 3 weeks and wasn't sure if the present illness is causing it. I verified if he was POA and he faxed forms to [facility]. Damion stated that if it was up to him he would allow for procedures. I let him know that if he states that to two RN's that would qualify as consent. After additional brief conversation Damion agreed to to state consent for dialysis cather, I&D of LLE, and BETHANY scheduled for tomorrow morning to r/o endocarditis to BRAULIO Corbett and myself.
--- NOTE | 2020-02-19 11:14 | NUR ---
Notified Dr. Little that I obtained verbal consent from patients and KORINA Bruno for permission to proceed with ordered procedures. Dr. Little put on the phone and he stated that when he was in with patient that she was compitent and there fore her wishes stand before POA's. I explained my assessment with patient and he said would come down to reevaluate patient to ensure no change.
--- NOTE | 2020-02-19 11:20 | NUR ---
Spoke with surgery and informed them that patient was going to be reevaluated by because of the confusion of patients mental status.
--- NOTE | 2020-02-19 12:00 | NUR ---
TALKED WITH PT AGAIN ABOUT SNF STAY BUT SHE IS STILL REFUSING. STATES I WAS AT A ALF BEFORE AND GOT C DIFF AND WAS VERY SICK. STATES SHE IS GOING HOME WHEN MEDICALLY STABLE. WILL ACCEPT HOME HEALTH. WILL CONTINUE TO FOLLOW.
--- NOTE | 2020-02-19 12:40 | NUR ---
Face to face encounter with and questioning patients mental status. Stated that patient refused morning pain med because she said it might be making her confused. Updated physician on conversation with patients . Per request of I gave him [employer] phone number and he verified that POA information was faxed to [facility].
--- NOTE | 2020-02-19 12:44 | NUR ---
Patient asked me "why is my in the hallway," "tell him I know he's here." Due to COVID 19 no visitors permitted.
--- NOTE | 2020-02-19 12:45 | NUR ---
After talking with patients said that the patient would go down for the ordered procedures. He was going to put a note in and walk to radiology to update them.
--- NOTE | 2020-02-19 13:23 | NUR ---
Message left regarding competency eval with Leslee Mahoney.
--- NOTE | 2020-02-19 13:38 | NUR ---
UNABLE TO TAKE PREOP PICTURES DUE TO COVERED BY DRESSING AND WOUND VAC PLACEMENT. SURGEON WAS MADE AWARE.
[2020-02-19 15:04] LABS: ACID FAST SPEC PROCESSING Tissue Grinding (.)
[2020-02-19 15:04] LABS: ACID FAST SPEC PROCESSING Tissue Grinding (.)
[2020-02-19 15:04] LABS: ACID FAST SPEC PROCESSING Tissue Grinding (.)
[2020-02-19 15:04] LABS: ACID FAST SPEC PROCESSING Tissue Grinding (.)
[2020-02-19 15:04] LABS: ACID FAST SPEC PROCESSING Tissue Grinding (.)
--- NOTE | 2020-02-19 17:00 | NUR ---
Received nurse to nurse from BRAULIO Freycore paster. See vitals. Patient to go from surgery to radiology for US.
--- NOTE | 2020-02-19 17:40 | NUR ---
Face to face encounter with . Notified of patients temperature. See new order for claudia waldrop.
--- NOTE | 2020-02-19 18:58 | NUR ---
Per Dr. Cole, DO NOT REMOVE DRESSING AT WOUND VAC SITE. Wound vac is to be disconnected and dressing to remain intact. Surgery was extensive and bleeding may be uncontrolled. Dr. Cole to contact to ensure accepting physician at [facility] is aware.
--- NOTE | 2020-02-19 19:11 | NUR ---
Spoke with regarding notification of bed available at [facility] and need for discharge order. See new orders.
--- NOTE | 2020-02-19 19:38 | NUR ---
Dr. Cole called to notify nursing staff that spoke to the head of podiatry at [facility] Dr. Karine Hope regarding patients history and surgical procedure done today.
--- NOTE | 2020-02-19 19:58 | NUR ---
Spoke with Damion Pina to let him know that we have a bed at this time. We are working on the paperwork and will let him know when she leaves [facility]. He gave consent for us to transfer her and to release medical information to [facility]. Nurse Heather Phipps as irina.
--- NOTE | 2020-02-19 20:30 | NUR ---
NURSE TO NURSE REPORT GIVEN TO MARIAJOSE RAMSEY AT [facility]
--- NOTE | 2020-02-19 20:40 | NUR ---
HA CALLED. NOTIFIES THAT AMBULANCE IS HERE AND PATIENT IS LEAVING HOSPITAL NOW.
[2020-02-21 16:04] LABS: ACID FAST SPEC PROCESSING Tissue Grinding (.)
[2020-02-21 16:04] LABS: ACID FAST SPEC PROCESSING Tissue Grinding (.)
[2020-02-21 16:04] LABS: ACID FAST SPEC PROCESSING Tissue Grinding (.)
== END 2020-02-19 20:42 | disposition short-term general hospital (02) | DRG 853 ==
LOC: ED 20:24 → 4E 02-16 00:57 → EDHOLD 02-16 00:57 → 4E 02-16 01:06
PROVIDERS: Hospitalist; Internal Medicine; Internal Medicine Nephrology; Physician Assistant; Podiatrist Foot & Ankle Surgery; ADMIT Family Medicine
PROC: 0S9G3ZZ Drainage of Left Ankle Joint, Percutaneous Approach (ICD-10-PCS; 2020-02-16)
PROC: 0D9W30Z Drainage of Peritoneum with Drainage Device, Percutaneous Approach (ICD-10-PCS; 2020-02-16)
PROC: 0QBM0ZZ Excision of Left Tarsal, Open Approach (ICD-10-PCS; 2020-02-17)
PROC: 0QBH0ZZ Excision of Left Tibia, Open Approach (ICD-10-PCS; 2020-02-17)
PROC: 0QPK04Z Removal of Internal Fixation Device from Left Fibula, Open Approach (ICD-10-PCS; 2020-02-17)
PROC: 0QBK0ZZ Excision of Left Fibula, Open Approach (ICD-10-PCS; principal; 2020-02-19)
PROC: 0QBH0ZZ Excision of Left Tibia, Open Approach (ICD-10-PCS; principal; 2020-02-19)
PROC: 0KNT0ZZ Release Left Lower Leg Muscle, Open Approach (ICD-10-PCS; principal; 2020-02-19)
DX: A41.01 Sepsis due to Methicillin susceptible Staphylococcus aureus (principal); K75.0 Abscess of liver; N17.0 Acute kidney failure with tubular necrosis; E43 Unspecified severe protein-calorie malnutrition; M00.9 Pyogenic arthritis, unspecified; E87.2 Acidosis; L02.91 Cutaneous abscess, unspecified; K91.89 Other postprocedural complications and disorders of digestive system; M86.8X7 Other osteomyelitis, ankle and foot; E11.69 Type 2 diabetes mellitus with other specified complication; N18.3 Chronic kidney disease, stage 3 (moderate); D64.9 Anemia, unspecified; E11.65 Type 2 diabetes mellitus with hyperglycemia; E78.2 Mixed hyperlipidemia; I12.9 Hypertensive chronic kidney disease with stage 1 through stage 4 chronic kidney disease, or unspecified chronic kidney disease; E03.9 Hypothyroidism, unspecified; E11.22 Type 2 diabetes mellitus with diabetic chronic kidney disease; E86.0 Dehydration; Y83.9 Surgical procedure, unspecified as the cause of abnormal reaction of the patient, or of later complication, without mention of misadventure at the time of the procedure; Z79.4 Long term (current) use of insulin; Z90.49 Acquired absence of other specified parts of digestive tract; Z88.1 Allergy status to other antibiotic agents; Z88.8 Allergy status to other drugs, medicaments and biological substances; Z79.899 Other long term (current) drug therapy; Z68.24 Body mass index [BMI] 24.0-24.9, adult; Z90.710 Acquired absence of both cervix and uterus

== ENCOUNTER → 2020-03-15 | Outpatient (CLI) | payer MEDICARE, OTHER ==
[~2020-03-15] MED LIST changes: +CRESTOR5 MG PO
== END | disposition home or self-care (01) ==
LOC: CT 09:22
DX: K75.0 Abscess of liver (principal); J98.11 Atelectasis; B95.61 Methicillin susceptible Staphylococcus aureus infection as the cause of diseases classified elsewhere; J90 Pleural effusion, not elsewhere classified

== ENCOUNTER 2020-03-31 13:07 | Emergency (ER) | payer MEDICARE, OTHER ==
[~2020-03-31] VITALS: Ht 167.6 cm; Wt 63.5 kg
[2020-03-31 13:39] LABS: BASO # 0.1 10*3/uL (0.0-0.1); BASO % 0.9 % (0.0-1.0); EOS # 0.3 10*3/uL (0.0-0.4); EOS % 3.1 % (1.0-4.0); HEMATOCRIT 27.4 % (37.0-47.0); LYMPH % 30.7 % (27.0-41.0); MEAN CELL VOLUME 94.2 fl (81.0-99.0); MEAN CORPUSCULAR HGB 30.2 pg (27.0-31.0); MEAN CORPUSCULAR HGB CONC 32.1 g/dl (33.0-37.0); MEAN PLATELET VOLUME 8.7 fl (9.6-12.3); MONO # 0.7 10*3/uL (0.1-1.0); MONO % 7.4 % (3.0-9.0); NEUT # 5.6 10*3/uL (2.3-7.9); NEUT % 57.2 % (47.0-73.0); PLATELET COUNT AUTOMATED 512 10*3/uL (130-400); RED BLOOD COUNT 2.91 10*6/uL (4.10-5.10); RED CELL DISTRI WIDTH 14.8 % (0-14.5); WHITE BLOOD COUNT 9.7 10*3/uL (4.8-10.8)
[2020-03-31 13:46] LABS: BILIRUBIN NEGATIVE (NEGATIVE); CLARITY CLOUDY (CLEAR); COLOR YELLOW (YELLOW); GLUCOSE NEGATIVE (NEGATIVE); KETONE NEGATIVE (NEGATIVE)
[2020-03-31 13:47] LABS: BLOOD TRACE-LYSED (NEGATIVE); LEUKO ESTERASE 3+ (NEGATIVE); NITRITE NEGATIVE (NEGATIVE); UROBILINOGEN 0.2 E.U./dl (0.2-1.0)
[2020-03-31 13:48] LABS: ACT PARTIAL THROMBO TIME 27.6 SECONDS (20.0-32.1)
[2020-03-31 13:56] LABS: CREATININE 1.12 mg/dL (0.55-1.02); POTASSIUM 4.1 mmol/L (3.5-5.1); TOTAL PROTEIN 6.8 gm/dL (6.4-8.2)
[2020-03-31 13:58] LABS: WBC TNTC wbc/hpf (0-5)
[2020-03-31 13:59] LABS: BACTERIA 2+; YEAST 3+
== END 2020-03-31 14:36 | disposition home or self-care (01) ==
LOC: ED 13:07
PROVIDERS: Emergency Medicine
DX: N39.0 Urinary tract infection, site not specified (principal); I10 Essential (primary) hypertension; E11.9 Type 2 diabetes mellitus without complications; Z88.8 Allergy status to other drugs, medicaments and biological substances; Z88.1 Allergy status to other antibiotic agents; Z79.899 Other long term (current) drug therapy; Z79.4 Long term (current) use of insulin; Z90.710 Acquired absence of both cervix and uterus

== ENCOUNTER 2020-04-02 13:11 | Emergency (ER) | payer MEDICARE, OTHER ==
[~2020-04-02] VITALS: Ht 167.6 cm; Wt 63.5 kg
[2020-04-02 14:46] LABS: BASO # 0.1 10*3/uL (0.0-0.1); BASO % 0.9 % (0.0-1.0); EOS # 0.2 10*3/uL (0.0-0.4); EOS % 1.9 % (1.0-4.0); HEMATOCRIT 25.9 % (37.0-47.0); LYMPH # 3.2 10*3/uL (1.3-4.4); LYMPH % 36.2 % (27.0-41.0); MEAN CELL VOLUME 94.9 fl (81.0-99.0); MEAN CORPUSCULAR HGB CONC 31.7 g/dl (33.0-37.0); MEAN PLATELET VOLUME 8.7 fl (9.6-12.3); MONO # 0.8 10*3/uL (0.1-1.0); MONO % 9.1 % (3.0-9.0); NEUT # 4.5 10*3/uL (2.3-7.9); NEUT % 51.2 % (47.0-73.0); PLATELET COUNT AUTOMATED 498 10*3/uL (130-400); RED BLOOD COUNT 2.73 10*6/uL (4.10-5.10); RED CELL DISTRI WIDTH 14.7 % (0-14.5); WHITE BLOOD COUNT 8.8 10*3/uL (4.8-10.8)
[2020-04-02 15:10] LABS: ALBUMIN 2.1 gm/dl (3.1-4.5); ALKALINE PHOSPHATASE 104 U/L (45-117); BUN 25 mg/dl (7-24); CHLORIDE 106 mmol/L (98-107); CREATININE 1.27 mg/dL (0.55-1.02); LIPASE 246 U/L (73-393); POTASSIUM 3.7 mmol/L (3.5-5.1); SGOT/AST 11 IU/L (3-35); SGPT/ALT 7 U/L (12-78); SODIUM 139 mmol/L (136-145); TOTAL PROTEIN 6.5 gm/dL (6.4-8.2)
[2020-04-02 15:16] LABS: TROPONIN I < 0.015 ng/ml (<0.045)
== END 2020-04-02 18:00 | disposition home or self-care (01) ==
LOC: ED 13:11
PROVIDERS: Physician Assistant
DX: R42 Dizziness and giddiness (principal); I10 Essential (primary) hypertension; E11.9 Type 2 diabetes mellitus without complications; Z90.710 Acquired absence of both cervix and uterus

== ENCOUNTER → 2020-04-05 | Outpatient (CLI) | payer MEDICARE, OTHER | END | disposition home or self-care (01) | LOC: CT 00:06 | DX: K83.8 Other specified diseases of biliary tract (principal); K75.0 Abscess of liver; J90 Pleural effusion, not elsewhere classified; I25.10 Atherosclerotic heart disease of native coronary artery without angina pectoris; Z96.0 Presence of urogenital implants; Z96.89 Presence of other specified functional implants; Z90.49 Acquired absence of other specified parts of digestive tract ==

== ENCOUNTER → 2020-07-07 | Outpatient (CLI) | payer MEDICARE, OTHER | END | disposition home or self-care (01) | LOC: RAD 17:26 | PROVIDERS: ATTEND Podiatrist | DX: M79.662 Pain in left lower leg (principal); R22.42 Localized swelling, mass and lump, left lower limb ==

== ENCOUNTER → 2020-08-30 | Outpatient (CLI) | payer MEDICARE, OTHER ==
[2020-08-30 16:52] LABS: BASO % 0.4 % (0.0-1.0); EOS # 0.1 10*3/uL (0.0-0.4); EOS % 0.8 % (1.0-4.0); HEMATOCRIT 45.5 % (37.0-47.0); LYMPH # 2.4 10*3/uL (1.3-4.4); LYMPH % 23.8 % (27.0-41.0); MEAN CELL VOLUME 90.6 fl (81.0-99.0); MEAN CORPUSCULAR HGB 28.3 pg (27.0-31.0); MEAN CORPUSCULAR HGB CONC 31.2 g/dl (33.0-37.0); MEAN PLATELET VOLUME 9.6 fl (9.6-12.3); MONO # 0.7 10*3/uL (0.1-1.0); MONO % 6.4 % (3.0-9.0); NEUT # 6.9 10*3/uL (2.3-7.9); PLATELET COUNT AUTOMATED 325 10*3/uL (130-400); RED BLOOD COUNT 5.02 10*6/uL (4.10-5.10); RED CELL DISTRI WIDTH 15.7 % (0-14.5); WHITE BLOOD COUNT 10.1 10*3/uL (4.8-10.8)
[2020-08-30 16:55] LABS: BILIRUBIN Negative (Negative); BLOOD 3+ (Negative); CLARITY Cloudy (Clear); COLOR Yellow (Yellow); GLUCOSE Negative (Negative); KETONE Negative (Negative); LEUKO ESTERASE 3+ (Negative); NITRITE Negative (Negative); SPECIFIC GRAVITY 1.015 (1.001-1.030); UROBILINOGEN 0.2 E.U./dl (0.0-1.0)
[2020-08-30 17:01] LABS: URINE CREATININE RANDOM 90.2 mg/dL
[2020-08-30 17:23] LABS: ALBUMIN 3.8 gm/dl (3.1-4.5); CREATININE 1.66 mg/dL (0.55-1.02); POTASSIUM 4.9 mmol/L (3.5-5.1)
[2020-08-30 17:51] LABS: WBC TNTC wbc/hpf (0-5)
[2020-08-30 17:52] LABS: BACTERIA TRACE
== END | disposition home or self-care (01) ==
LOC: LAB 16:21
PROVIDERS: ATTEND Internal Medicine Nephrology
DX: N18.32 Chronic kidney disease, stage 3b (principal); D63.1 Anemia in chronic kidney disease; R82.998 Other abnormal findings in urine

== ENCOUNTER → 2020-09-23 | Outpatient (CLI) | payer MEDICARE, OTHER | END | disposition home or self-care (01) | LOC: RAD 16:06 | PROVIDERS: ATTEND Nurse Practitioner Family | DX: N30.00 Acute cystitis without hematuria (principal) ==

== ENCOUNTER → 2020-11-26 | Outpatient (CLI) | payer MEDICARE, OTHER ==
[2020-11-26 12:45] LABS: BASO # 0.1 10*3/uL (0.0-0.1); BASO % 0.7 % (0.0-1.0); EOS # 0.1 10*3/uL (0.0-0.4); EOS % 1.5 % (1.0-4.0); HEMATOCRIT 39.8 % (37.0-47.0); LYMPH # 2.2 10*3/uL (1.3-4.4); LYMPH % 31.2 % (27.0-41.0); MEAN CORPUSCULAR HGB 31.3 pg (27.0-31.0); MEAN CORPUSCULAR HGB CONC 31.7 g/dl (33.0-37.0); MEAN PLATELET VOLUME 10.2 fl (9.6-12.3); MONO # 0.6 10*3/uL (0.1-1.0); MONO % 8.3 % (3.0-9.0); NEUT # 4.1 10*3/uL (2.3-7.9); NEUT % 57.7 % (47.0-73.0); PLATELET COUNT AUTOMATED 295 10*3/uL (130-400); RED BLOOD COUNT 4.02 10*6/uL (4.10-5.10); RED CELL DISTRI WIDTH 11.9 % (0-14.5); WHITE BLOOD COUNT 7.1 10*3/uL (4.8-10.8)
[2020-11-26 12:51] LABS: ALBUMIN 3.7 gm/dl (3.1-4.5); CREATININE 1.64 mg/dL (0.55-1.02); POTASSIUM 4.7 mmol/L (3.5-5.1)
[2020-11-26 15:28] LABS: BILIRUBIN Negative (Negative); BLOOD 1+ (Negative); CLARITY Turbid (Clear); COLOR Yellow (Yellow); GLUCOSE Negative (Negative); KETONE Negative (Negative); LEUKO ESTERASE 3+ (Negative); NITRITE Negative (Negative); SPECIFIC GRAVITY 1.015 (1.001-1.030); UROBILINOGEN 0.2 E.U./dl (0.0-1.0)
[2020-11-26 15:40] LABS: WBC TNTC wbc/hpf (0-5)
[2020-11-26 15:41] LABS: BACTERIA TRACE; MUCOUS 1+
== END | disposition home or self-care (01) ==
LOC: LAB 11:34
PROVIDERS: ATTEND Internal Medicine Nephrology
DX: N18.32 Chronic kidney disease, stage 3b (principal); D63.1 Anemia in chronic kidney disease; Z79.899 Other long term (current) drug therapy

== ENCOUNTER → 2021-03-07 | Outpatient (CLI) | payer MEDICARE, OTHER ==
[2021-03-07 13:16] LABS: BASO # 0.1 10*3/uL (0.0-0.1); BASO % 0.9 % (0.0-1.0); EOS # 0.1 10*3/uL (0.0-0.4); EOS % 1.1 % (1.0-4.0); HEMATOCRIT 37.7 % (37.0-47.0); LYMPH # 2.3 10*3/uL (1.3-4.4); LYMPH % 34.1 % (27.0-41.0); MEAN CELL VOLUME 97.7 fl (81.0-99.0); MEAN CORPUSCULAR HGB 31.3 pg (27.0-31.0); MEAN CORPUSCULAR HGB CONC 32.1 g/dl (33.0-37.0); MEAN PLATELET VOLUME 9.8 fl (9.6-12.3); MONO # 0.5 10*3/uL (0.1-1.0); MONO % 6.8 % (3.0-9.0); NEUT # 3.8 10*3/uL (2.3-7.9); NEUT % 56.5 % (47.0-73.0); PLATELET COUNT AUTOMATED 268 10*3/uL (130-400); RED BLOOD COUNT 3.86 10*6/uL (4.10-5.10); RED CELL DISTRI WIDTH 12.4 % (0-14.5); WHITE BLOOD COUNT 6.6 10*3/uL (4.8-10.8)
[2021-03-07 13:52] LABS: ALBUMIN 3.9 gm/dl (3.1-4.5); CREATININE 1.68 mg/dL (0.55-1.02); POTASSIUM 4.2 mmol/L (3.5-5.1)
[2021-03-07 13:57] LABS: ALBUMIN 3.8 gm/dl (3.1-4.5); CREATININE 1.67 mg/dL (0.55-1.02); POTASSIUM 4.1 mmol/L (3.5-5.1)
[2021-03-07 14:03] LABS: FREE T4 1.24 ng/dl (0.76-1.46); THYROID STIM HORMONE (HS) 0.788 uIU/ml (0.358-4.75)
[2021-03-07 15:25] LABS: FERRITIN 225.1 ng/mL (10.0-291.0); VITAMIN D, 25-HYDROXY 41.5 ng/mL (30-100)
[2021-03-07 16:18] LABS: VITAMIN D, 25-HYDROXY 42.9 ng/mL (30-100)
[2021-03-07 20:10] LABS: PTH INTACT 70.4 pg/mL (18.5-88.0)
[2021-03-08 21:06] LABS: MERCURY 3.7 ug/L (0.0-14.9)
[2021-03-09 11:07] LABS: LEAD BLOOD 2 ug/dL (0-4)
== END | disposition home or self-care (01) ==
LOC: LAB 12:39
PROVIDERS: Internal Medicine; Internal Medicine Nephrology; ATTEND Family Medicine
DX: N18.32 Chronic kidney disease, stage 3b (principal); N25.81 Secondary hyperparathyroidism of renal origin; E11.21 Type 2 diabetes mellitus with diabetic nephropathy; R53.1 Weakness; Z79.899 Other long term (current) drug therapy

== ENCOUNTER → 2021-03-23 | Outpatient (CLI) | payer MEDICARE, OTHER ==
[2021-03-23 13:33] LABS: BASO % 0.6 % (0.0-1.0); EOS # 0.1 10*3/uL (0.0-0.4); EOS % 1.1 % (1.0-4.0); HEMATOCRIT 35.2 % (37.0-47.0); LYMPH # 2.2 10*3/uL (1.3-4.4); LYMPH % 30.7 % (27.0-41.0); MEAN CELL VOLUME 99.4 fl (81.0-99.0); MEAN CORPUSCULAR HGB 31.9 pg (27.0-31.0); MEAN CORPUSCULAR HGB CONC 32.1 g/dl (33.0-37.0); MEAN PLATELET VOLUME 9.9 fl (9.6-12.3); MONO # 0.5 10*3/uL (0.1-1.0); MONO % 6.5 % (3.0-9.0); NEUT # 4.4 10*3/uL (2.3-7.9); NEUT % 60.7 % (47.0-73.0); PLATELET COUNT AUTOMATED 268 10*3/uL (130-400); RED BLOOD COUNT 3.54 10*6/uL (4.10-5.10); RED CELL DISTRI WIDTH 12.6 % (0-14.5); WHITE BLOOD COUNT 7.2 10*3/uL (4.8-10.8)
[2021-03-23 13:43] LABS: CREATININE 1.81 mg/dL (0.55-1.02); POTASSIUM 4.7 mmol/L (3.5-5.1)
== END | disposition home or self-care (01) ==
LOC: LAB 00:26
PROVIDERS: ATTEND Internal Medicine
DX: E11.9 Type 2 diabetes mellitus without complications (principal); R53.81 Other malaise

== ENCOUNTER → 2021-08-02 | Outpatient (CLI) | payer MEDICARE, OTHER ==
[2021-08-02 13:06] LABS: BASO # 0.1 10*3/uL (0.0-0.1); BASO % 0.8 % (0.0-1.0); EOS # 0.3 10*3/uL (0.0-0.4); EOS % 3.8 % (1.0-4.0); HEMATOCRIT 38.6 % (37.0-47.0); LYMPH # 2.4 10*3/uL (1.3-4.4); LYMPH % 27.8 % (27.0-41.0); MEAN CELL VOLUME 99.2 fl (81.0-99.0); MEAN CORPUSCULAR HGB 31.4 pg (27.0-31.0); MEAN CORPUSCULAR HGB CONC 31.6 g/dl (33.0-37.0); MEAN PLATELET VOLUME 9.9 fl (9.6-12.3); MONO # 0.7 10*3/uL (0.1-1.0); MONO % 8.3 % (3.0-9.0); NEUT % 58.9 % (47.0-73.0); PLATELET COUNT AUTOMATED 279 10*3/uL (130-400); RED BLOOD COUNT 3.89 10*6/uL (4.10-5.10); RED CELL DISTRI WIDTH 12.1 % (0-14.5); WHITE BLOOD COUNT 8.5 10*3/uL (4.8-10.8)
[2021-08-02 13:25] LABS: ALBUMIN 3.6 gm/dl (3.1-4.5); CREATININE 1.82 mg/dL (0.55-1.02); POTASSIUM 5.4 mmol/L (3.5-5.1); TOTAL PROTEIN 6.9 gm/dL (6.4-8.2)
[2021-08-06 12:07] LABS: METHYLMALONIC ACID 342 nmol/L (0-378)
== END | disposition home or self-care (01) ==
LOC: LAB 12:49
PROVIDERS: ATTEND Psychiatry & Neurology Neurology
DX: R26.89 Other abnormalities of gait and mobility (principal); R41.89 Other symptoms and signs involving cognitive functions and awareness; I10 Essential (primary) hypertension

== ENCOUNTER → 2021-08-18 | Outpatient (CLI) | payer MEDICARE, OTHER | END | disposition home or self-care (01) | LOC: RAD 14:39 | PROVIDERS: ATTEND Internal Medicine | DX: M16.0 Bilateral primary osteoarthritis of hip (principal); M51.36 Other intervertebral disc degeneration, lumbar region; G95.29 Other cord compression; I70.0 Atherosclerosis of aorta; Z90.49 Acquired absence of other specified parts of digestive tract ==

== ENCOUNTER → 2021-09-12 | Outpatient (CLI) | payer MEDICARE, OTHER ==
[2021-09-12 16:41] LABS: BASO % 0.5 % (0.0-1.0); EOS # 0.1 10*3/uL (0.0-0.4); EOS % 1.5 % (1.0-4.0); HEMATOCRIT 37.5 % (37.0-47.0); LYMPH # 2.7 10*3/uL (1.3-4.4); LYMPH % 35.8 % (27.0-41.0); MEAN CELL VOLUME 98.4 fl (81.0-99.0); MEAN CORPUSCULAR HGB CONC 31.5 g/dl (33.0-37.0); MONO # 0.6 10*3/uL (0.1-1.0); MONO % 8.3 % (3.0-9.0); NEUT % 53.4 % (47.0-73.0); PLATELET COUNT AUTOMATED 269 10*3/uL (130-400); RED BLOOD COUNT 3.81 10*6/uL (4.10-5.10); RED CELL DISTRI WIDTH 12.2 % (0-14.5); WHITE BLOOD COUNT 7.4 10*3/uL (4.8-10.8)
[2021-09-12 16:55] LABS: ALBUMIN 3.5 gm/dl (3.1-4.5); CREATININE 1.77 mg/dL (0.55-1.02); POTASSIUM 5.9 mmol/L (3.5-5.1)
[2021-09-12 17:06] LABS: FERRITIN 254.9 ng/mL (10.0-291.0); VITAMIN D, 25-HYDROXY 40.4 ng/mL (30-100)
[2021-09-12 17:07] LABS: PTH INTACT 113.7 pg/mL (18.5-88.0)
[2021-09-13 17:05] LABS: BILIRUBIN Negative (Negative); BLOOD Trace-Lysed (Negative); CLARITY Cloudy (Clear); COLOR Yellow (Yellow); GLUCOSE Negative (Negative); KETONE Negative (Negative); LEUKO ESTERASE 3+ (Negative); NITRITE Positive (Negative); SPECIFIC GRAVITY 1.015 (1.001-1.030); UROBILINOGEN 0.2 E.U./dl (0.0-1.0)
[2021-09-13 17:29] LABS: URINE CREATININE RANDOM 85.5 mg/dL
[2021-09-13 18:10] LABS: BACTERIA 2+; EPITHELIAL CELLS 0-2; WBC TNTC wbc/hpf (0-5)
== END | disposition home or self-care (01) ==
LOC: LAB 16:08
PROVIDERS: ATTEND Internal Medicine Nephrology
DX: E11.21 Type 2 diabetes mellitus with diabetic nephropathy (principal); E11.22 Type 2 diabetes mellitus with diabetic chronic kidney disease; D63.1 Anemia in chronic kidney disease; N25.81 Secondary hyperparathyroidism of renal origin; Z79.899 Other long term (current) drug therapy

== ENCOUNTER → 2021-09-27 | Outpatient (CLI) | payer MEDICARE, OTHER | END | disposition home or self-care (01) | LOC: RAD 08-17 13:30 | PROVIDERS: ATTEND Internal Medicine Endocrinology, Diabetes & Metabolism | DX: M85.852 Other specified disorders of bone density and structure, left thigh (principal); Z78.0 Asymptomatic menopausal state ==

== ENCOUNTER 2021-11-18 16:13 | Emergency (ER) | payer MEDICARE, OTHER ==
[~2021-11-18] VITALS: Ht 167.6 cm; Wt 74.8 kg
== END 2021-11-18 20:13 | disposition home or self-care (01) ==
LOC: ED 16:13
DX: U07.1 COVID-19 (principal); Z88.1 Allergy status to other antibiotic agents; Z88.8 Allergy status to other drugs, medicaments and biological substances; Z79.899 Other long term (current) drug therapy

== ENCOUNTER → 2022-01-30 | Outpatient (CLI) | payer MEDICARE, OTHER ==
[2022-01-30 15:45] LABS: BASO # 0.1 10*3/uL (0.0-0.1); BASO % 0.9 % (0.0-1.0); EOS # 0.2 10*3/uL (0.0-0.4); EOS % 3.2 % (1.0-4.0); HEMATOCRIT 39.4 % (37.0-47.0); LYMPH # 2.2 10*3/uL (1.3-4.4); LYMPH % 32.1 % (27.0-41.0); MEAN CELL VOLUME 96.6 fl (81.0-99.0); MEAN CORPUSCULAR HGB 31.1 pg (27.0-31.0); MEAN CORPUSCULAR HGB CONC 32.2 g/dl (33.0-37.0); MEAN PLATELET VOLUME 9.9 fl (9.6-12.3); MONO # 0.5 10*3/uL (0.1-1.0); MONO % 6.8 % (3.0-9.0); NEUT # 3.9 10*3/uL (2.3-7.9); NEUT % 56.6 % (47.0-73.0); PLATELET COUNT AUTOMATED 287 10*3/uL (130-400); RED BLOOD COUNT 4.08 10*6/uL (4.10-5.10); RED CELL DISTRI WIDTH 11.9 % (0-14.5); WHITE BLOOD COUNT 6.9 10*3/uL (4.8-10.8)
[2022-01-30 15:53] LABS: BILIRUBIN Negative (Negative); BLOOD Negative (Negative); CLARITY Clear (Clear); COLOR Yellow (Yellow); GLUCOSE Negative (Negative); KETONE Negative (Negative); LEUKO ESTERASE Trace (Negative); NITRITE Negative (Negative); UROBILINOGEN 0.2 E.U./dl (0.0-1.0)
[2022-01-30 15:54] LABS: URINE CREATININE RANDOM 63.8 mg/dL
[2022-01-30 16:09] LABS: CREATININE 1.67 mg/dL (0.55-1.02); POTASSIUM 4.8 mmol/L (3.5-5.1)
[2022-01-30 16:32] LABS: FERRITIN 192.6 ng/mL (10.0-291.0); VITAMIN D, 25-HYDROXY 41.5 ng/mL (30-100)
== END | disposition home or self-care (01) ==
LOC: LAB 01-27 01:25
PROVIDERS: ATTEND Internal Medicine Nephrology
DX: E11.22 Type 2 diabetes mellitus with diabetic chronic kidney disease (principal); E11.21 Type 2 diabetes mellitus with diabetic nephropathy; N18.32 Chronic kidney disease, stage 3b; D63.1 Anemia in chronic kidney disease; N25.81 Secondary hyperparathyroidism of renal origin; Z79.899 Other long term (current) drug therapy

== ENCOUNTER → 2022-02-21 | Outpatient (CLI) | payer MEDICARE, OTHER ==
[2022-02-21 17:08] LABS: THYROID STIM HORMONE (HS) 0.887 uIU/ml (0.358-4.75); THYROXINE (T4) TOTAL 10.9 ug/dl (4.8-13.9)
== END | disposition home or self-care (01) ==
LOC: LAB 15:58
PROVIDERS: ATTEND Internal Medicine
DX: E03.9 Hypothyroidism, unspecified (principal)

== ENCOUNTER → 2022-04-24 | Outpatient (CLI) | payer MEDICARE, OTHER | END | disposition home or self-care (01) | LOC: US 04-20 09:30 | PROVIDERS: ATTEND Internal Medicine | DX: N39.0 Urinary tract infection, site not specified (principal); R10.9 Unspecified abdominal pain; R30.0 Dysuria ==

== ENCOUNTER → 2022-07-07 | Outpatient (CLI) | payer MEDICARE, OTHER ==
[~2022-07-07] MED LIST changes: +COZAAR50 M1 PO
== END | disposition home or self-care (01) ==
LOC: CARD 00:09
PROVIDERS: ATTEND Internal Medicine
DX: I10 Essential (primary) hypertension (principal)

== ENCOUNTER → 2022-07-14 | Outpatient (CLI) | payer MEDICARE, OTHER | END | disposition home or self-care (01) | LOC: CARD 11:00 | PROVIDERS: ATTEND Internal Medicine | DX: R07.89 Other chest pain (principal) ==

== ENCOUNTER → 2022-08-07 | Outpatient (CLI) | payer MEDICARE, OTHER ==
[2022-08-07 11:43] LABS: BASO # 0.1 10*3/uL (0.0-0.1); BASO % 0.8 % (0.0-1.0); EOS # 0.1 10*3/uL (0.0-0.4); HEMATOCRIT 39.1 % (37.0-47.0); LYMPH # 2.2 10*3/uL (1.3-4.4); LYMPH % 36.7 % (27.0-41.0); MEAN CELL VOLUME 96.1 fl (81.0-99.0); MEAN CORPUSCULAR HGB 31.4 pg (27.0-31.0); MEAN CORPUSCULAR HGB CONC 32.7 g/dl (33.0-37.0); MEAN PLATELET VOLUME 9.7 fl (9.6-12.3); MONO # 0.5 10*3/uL (0.1-1.0); MONO % 8.7 % (3.0-9.0); NEUT # 3.1 10*3/uL (2.3-7.9); NEUT % 51.3 % (47.0-73.0); PLATELET COUNT AUTOMATED 271 10*3/uL (130-400); RED BLOOD COUNT 4.07 10*6/uL (4.10-5.10); RED CELL DISTRI WIDTH 12.5 % (0-14.5); WHITE BLOOD COUNT 6.1 10*3/uL (4.8-10.8)
[2022-08-07 12:01] LABS: CREATININE 1.59 mg/dL (0.55-1.02); POTASSIUM 4.7 mmol/L (3.5-5.1)
[2022-08-07 12:15] LABS: FERRITIN 146.6 ng/mL (10.0-291.0); VITAMIN D, 25-HYDROXY 38.7 ng/mL (30-100)
== END ==
LOC: LAB 11:15
PROVIDERS: ATTEND Internal Medicine Nephrology
DX: E11.22 Type 2 diabetes mellitus with diabetic chronic kidney disease (principal); N18.31 Chronic kidney disease, stage 3a; N25.81 Secondary hyperparathyroidism of renal origin; D63.1 Anemia in chronic kidney disease

== ENCOUNTER → 2023-03-05 | Outpatient (CLI) | payer MEDICARE, OTHER ==
[~2023-03-05] MED LIST changes: +MUCINEX ER600 MG PO; +NITROFURANTOIN100 M9 PO
[2023-03-05 15:06] LABS: BASO # 0.1 10*3/uL (0.0-0.1); BASO % 0.9 % (0.0-1.0); EOS # 0.1 10*3/uL (0.0-0.4); EOS % 1.7 % (1.0-4.0); LYMPH # 1.8 10*3/uL (1.3-4.4); LYMPH % 30.9 % (27.0-41.0); MEAN CELL VOLUME 97.1 fl (81.0-99.0); MEAN CORPUSCULAR HGB 31.6 pg (27.0-31.0); MEAN CORPUSCULAR HGB CONC 32.5 g/dl (33.0-37.0); MONO # 0.5 10*3/uL (0.1-1.0); MONO % 8.4 % (3.0-9.0); NEUT # 3.4 10*3/uL (2.3-7.9); NEUT % 57.9 % (47.0-73.0); PLATELET COUNT AUTOMATED 261 10*3/uL (130-400); RED BLOOD COUNT 4.12 10*6/uL (4.10-5.10); RED CELL DISTRI WIDTH 12.4 % (0-14.5); WHITE BLOOD COUNT 5.9 10*3/uL (4.8-10.8)
[2023-03-05 15:28] LABS: BILIRUBIN Negative (Negative); BLOOD Negative (Negative); CLARITY Clear (Clear); COLOR Yellow (Yellow); GLUCOSE Negative (Negative); KETONE Negative (Negative); LEUKO ESTERASE Trace (Negative); NITRITE Negative (Negative); SPECIFIC GRAVITY 1.015 (1.001-1.030); UROBILINOGEN 0.2 E.U./dl (0.0-1.0)
[2023-03-05 15:35] LABS: URINE CREATININE RANDOM 91.41 mg/dL
[2023-03-05 15:40] LABS: POTASSIUM 4.5 mmol/L (3.4-5.1)
[2023-03-05 15:41] LABS: VITAMIN D, 25-HYDROXY 44.9 ng/mL (30-100)
[2023-03-05 15:58] LABS: BACTERIA 1+; EPITHELIAL CELLS 16-20; RBC 0-2 rbc/hpf (0-2)
== END | disposition home or self-care (01) ==
LOC: LAB 01:13
PROVIDERS: ATTEND Internal Medicine Nephrology
DX: E11.21 Type 2 diabetes mellitus with diabetic nephropathy (principal); N18.32 Chronic kidney disease, stage 3b; D63.1 Anemia in chronic kidney disease; N25.81 Secondary hyperparathyroidism of renal origin; Z79.899 Other long term (current) drug therapy

== ENCOUNTER → 2023-03-22 | Outpatient (CLI) | payer MEDICARE, OTHER | END | disposition home or self-care (01) | LOC: RAD/SH 14:00 | PROVIDERS: ATTEND Internal Medicine | DX: R13.10 Dysphagia, unspecified (principal) ==

== ENCOUNTER → 2023-09-12 | Outpatient (CLI) | payer MEDICARE, OTHER | END | disposition home or self-care (01) | LOC: MAMMO 09-06 14:00 | PROVIDERS: ATTEND Internal Medicine | DX: N63.20 Unspecified lump in the left breast, unspecified quadrant (principal); N64.59 Other signs and symptoms in breast ==

== ENCOUNTER → 2023-11-09 | Outpatient (CLI) | payer MEDICARE, OTHER ==
[2023-11-09 15:15] LABS: BASO # 0.1 10*3/uL (0.0-0.1); BASO % 0.7 % (0.0-1.0); EOS # 0.3 10*3/uL (0.0-0.4); EOS % 4.8 % (1.0-4.0); HEMATOCRIT 35.8 % (37.0-47.0); LYMPH # 2.5 10*3/uL (1.3-4.4); LYMPH % 36.1 % (27.0-41.0); MEAN CELL VOLUME 97.3 fl (81.0-99.0); MEAN CORPUSCULAR HGB 30.7 pg (27.0-31.0); MEAN CORPUSCULAR HGB CONC 31.6 g/dl (33.0-37.0); MEAN PLATELET VOLUME 9.4 fl (9.6-12.3); MONO # 0.6 10*3/uL (0.1-1.0); MONO % 9.2 % (3.0-9.0); NEUT # 3.4 10*3/uL (2.3-7.9); NEUT % 49.1 % (47.0-73.0); PLATELET COUNT AUTOMATED 309 10*3/uL (130-400); RED BLOOD COUNT 3.68 10*6/uL (4.10-5.10); RED CELL DISTRI WIDTH 12.8 % (0-14.5); WHITE BLOOD COUNT 6.8 10*3/uL (4.8-10.8)
[2023-11-09 16:31] LABS: POTASSIUM 5.1 mmol/L (3.4-5.1)
[2023-11-09 16:33] LABS: VITAMIN D, 25-HYDROXY 46.9 ng/mL (30-100)
== END | disposition home or self-care (01) ==
LOC: LAB 14:37
PROVIDERS: ATTEND Internal Medicine Nephrology
DX: E11.22 Type 2 diabetes mellitus with diabetic chronic kidney disease (principal); E11.21 Type 2 diabetes mellitus with diabetic nephropathy; N25.81 Secondary hyperparathyroidism of renal origin; D63.1 Anemia in chronic kidney disease; N18.30 Chronic kidney disease, stage 3 unspecified; Z79.899 Other long term (current) drug therapy

== ENCOUNTER → 2023-11-12 | Outpatient (CLI) | payer MEDICARE, OTHER ==
[2023-11-12 15:19] LABS: BILIRUBIN Negative (Negative); BLOOD Negative (Negative); CLARITY Clear (Clear); COLOR Yellow (Yellow); GLUCOSE Negative (Negative); KETONE Negative (Negative); LEUKO ESTERASE 1+ (Negative); NITRITE Negative (Negative); PH 5.5 (4.5-8.0); UROBILINOGEN 0.2 E.U./dl (0.0-1.0)
[2023-11-12 15:27] LABS: URINE CREATININE RANDOM 41.19 mg/dL
[2023-11-12 15:30] LABS: BACTERIA 4+; EPITHELIAL CELLS 0-2; WBC 51-100 wbc/hpf (0-5)
== END | disposition home or self-care (01) ==
LOC: LAB 00:36
PROVIDERS: ATTEND Internal Medicine Nephrology
DX: E11.22 Type 2 diabetes mellitus with diabetic chronic kidney disease (principal); N18.30 Chronic kidney disease, stage 3 unspecified; D63.1 Anemia in chronic kidney disease; E11.21 Type 2 diabetes mellitus with diabetic nephropathy; N25.81 Secondary hyperparathyroidism of renal origin; Z79.899 Other long term (current) drug therapy

== ENCOUNTER → 2024-01-24 | Outpatient (CLI) | payer MEDICARE, OTHER | END | disposition home or self-care (01) | LOC: US 14:00 | PROVIDERS: ATTEND Internal Medicine | DX: N63.25 Unspecified lump in the left breast, overlapping quadrants (principal); N60.02 Solitary cyst of left breast ==

== ENCOUNTER → 2024-03-18 | Outpatient (CLI) | payer MEDICARE, OTHER | END | disposition home or self-care (01) | LOC: RESCLI 00:38 | PROVIDERS: ATTEND Family Medicine | DX: I10 Essential (primary) hypertension (principal); E03.9 Hypothyroidism, unspecified; E11.3513 Type 2 diabetes mellitus with proliferative diabetic retinopathy with macular edema, bilateral; E55.9 Vitamin D deficiency, unspecified; E78.2 Mixed hyperlipidemia; Z79.899 Other long term (current) drug therapy; Z88.8 Allergy status to other drugs, medicaments and biological substances; Z98.890 Other specified postprocedural states ==

== ENCOUNTER → 2024-03-21 | Outpatient (CLI) | payer MEDICARE, OTHER | LOC: US 14:50 | PROVIDERS: ATTEND Internal Medicine | DX: M19.072 Primary osteoarthritis, left ankle and foot (principal); R22.42 Localized swelling, mass and lump, left lower limb ==

== ENCOUNTER → 2024-05-06 | Outpatient (CLI) | payer MEDICARE, OTHER | END | disposition home or self-care (01) | LOC: MAMMO 03:24 | PROVIDERS: ATTEND Internal Medicine | DX: R92.1 Mammographic calcification found on diagnostic imaging of breast (principal) ==

== ENCOUNTER → 2024-05-09 | Outpatient (CLI) | payer MEDICARE, OTHER ==
[2024-05-09 15:49] LABS: BASO # 0.1 10*3/uL (0.0-0.1); BASO % 0.8 % (0.0-1.0); EOS # 0.1 10*3/uL (0.0-0.4); EOS % 1.2 % (1.0-4.0); HEMATOCRIT 38.8 % (37.0-47.0); LYMPH # 2.7 10*3/uL (1.3-4.4); LYMPH % 36.6 % (27.0-41.0); MEAN CELL VOLUME 97.7 fl (81.0-99.0); MEAN CORPUSCULAR HGB CONC 31.7 g/dl (33.0-37.0); MEAN PLATELET VOLUME 10.2 fl (9.6-12.3); MONO # 0.6 10*3/uL (0.1-1.0); MONO % 8.3 % (3.0-9.0); NEUT # 3.9 10*3/uL (2.3-7.9); NEUT % 52.6 % (47.0-73.0); PLATELET COUNT AUTOMATED 290 10*3/uL (130-400); RED BLOOD COUNT 3.97 10*6/uL (4.10-5.10); RED CELL DISTRI WIDTH 12.9 % (0-14.5); WHITE BLOOD COUNT 7.4 10*3/uL (4.8-10.8)
[2024-05-09 15:49] LABS: BILIRUBIN Negative (Negative); BLOOD Negative (Negative); CLARITY Clear (Clear); COLOR Yellow (Yellow); GLUCOSE Negative (Negative); KETONE Negative (Negative); LEUKO ESTERASE 1+ (Negative); NITRITE Negative (Negative); SPECIFIC GRAVITY 1.015 (1.001-1.030); UROBILINOGEN 0.2 E.U./dl (0.0-1.0)
[2024-05-09 15:56] LABS: URINE CREATININE RANDOM 77.5 mg/dL
[2024-05-09 16:18] LABS: VITAMIN D, 25-HYDROXY 29.8 ng/mL (30-100)
[2024-05-09 16:24] LABS: BACTERIA 1+
== END | disposition home or self-care (01) ==
LOC: LAB 14:44
PROVIDERS: ATTEND Internal Medicine Nephrology
DX: E11.22 Type 2 diabetes mellitus with diabetic chronic kidney disease (principal); E11.21 Type 2 diabetes mellitus with diabetic nephropathy; N18.30 Chronic kidney disease, stage 3 unspecified; D63.1 Anemia in chronic kidney disease; N25.81 Secondary hyperparathyroidism of renal origin

== ENCOUNTER 2024-08-06 16:48 | Inpatient (IN) | payer MEDICARE, OTHER ==
[~2024-08-06] VITALS: Ht 167.6 cm; Wt 83.5 kg
[2024-08-06 18:15] VITALS: BP 180/81
[2024-08-06 18:17] LABS: BASO % 0.3 % (0.0-1.0); EOS # 0.1 10*3/uL (0.0-0.4); EOS % 0.6 % (1.0-4.0); HEMATOCRIT 39.4 % (37.0-47.0); LYMPH # 2.1 10*3/uL (1.3-4.4); LYMPH % 23.7 % (27.0-41.0); MEAN CELL VOLUME 98.3 fl (81.0-99.0); MEAN CORPUSCULAR HGB 31.4 pg (27.0-31.0); MEAN PLATELET VOLUME 9.3 fl (9.6-12.3); MONO # 0.5 10*3/uL (0.1-1.0); MONO % 5.4 % (3.0-9.0); NEUT # 6.3 10*3/uL (2.3-7.9); NEUT % 69.7 % (47.0-73.0); PLATELET COUNT AUTOMATED 277 10*3/uL (130-400); RED BLOOD COUNT 4.01 10*6/uL (4.10-5.10)
[2024-08-06] MEDS ORDERED: NORVASC5 MG PO (18:18)
[2024-08-06] MEDS ORDERED: ATORVASTATIN CA20 M1 PO (18:18)
[2024-08-06 18:28] LABS: ACT PARTIAL THROMBO TIME 25.6 SECONDS (20.0-32.1)
[2024-08-06 18:33] LABS: POTASSIUM 5.1 mmol/L (3.4-5.1)
[2024-08-06] MEDS ORDERED: SODIUM CHLORIDE 0.9% 1,000 ML IV ONE (21:05)
[2024-08-06] MEDS ORDERED: COLESTIPOL HYDRO1 GM PO ×2 (23:34→23:35)
[2024-08-06] MEDS ORDERED: LEVOTHYROXINE75 MCG PO (23:38)
[2024-08-06] MEDS ORDERED: 24 HOUR ALLERG9.9 ML INH (23:40)
[2024-08-07 01:02] VITALS: BP 142/80
[2024-08-07] MEDS ORDERED: BIMATOPROST OP (02:31)
[2024-08-07] MEDS ORDERED: HUMALOG100 UNIT/1 SC (02:34)
[2024-08-07] MEDS ORDERED: SODIUM CHLORIDE 0.9% 1,000 ML IV SCH (02:45)
[2024-08-07] MEDS ORDERED: DEXTROSE 10 % IN WATER 250 ML IV PRN ×2 (02:45→08:15)
[2024-08-07 07:12] LABS: POTASSIUM 3.9 mmol/L (3.4-5.1)
[2024-08-07] MEDS ORDERED: INSULIN REGULAR, HUMAN 1 UNIT/0.01 ML SC SCH ×3 (07:30→16:30)
[2024-08-07 08:00] VITALS: BP 125/98
[2024-08-07] MEDS ORDERED: TIMOLOL 0.5% OPHTHALMIC 5 ML BOTTLE OPH SCH ×2 (10:00→22:00)
[2024-08-07] MEDS ORDERED: Colestipol Hydrochloride 1 GM TAB PO SCH (10:00)
[2024-08-07] MEDS ORDERED: Metoprolol Tartrate 25 MG TAB PO SCH (10:00)
[2024-08-07] MEDS ORDERED: INSULIN LISPRO 1 UNIT/0.01 ML SQ SCH (11:30)
[2024-08-07 12:00] VITALS: BP 121/95
[2024-08-07 16:00] VITALS: BP 137/69
[2024-08-07 20:00] VITALS: BP 142/73
[2024-08-07 22:00] VITALS: BP 142/73
[2024-08-07] MEDS ORDERED: BIMATOPROST 50 DRP BOT OPH SCH (22:00)
[2024-08-07] MEDS ORDERED: ATORVASTATIN CALCIUM 20 MG TAB PO SCH (22:00)
[2024-08-08] MEDS ORDERED: Levothyroxine Sodium 75 MCG TAB PO SCH (06:00)
[2024-08-08 06:26] LABS: BASO % 0.4 % (0.0-1.0); EOS # 0.2 10*3/uL (0.0-0.4); EOS % 2.2 % (1.0-4.0); HEMATOCRIT 33.7 % (37.0-47.0); LYMPH # 2.9 10*3/uL (1.3-4.4); LYMPH % 41.8 % (27.0-41.0); MEAN CELL VOLUME 98.5 fl (81.0-99.0); MEAN CORPUSCULAR HGB 31.3 pg (27.0-31.0); MEAN CORPUSCULAR HGB CONC 31.8 g/dl (33.0-37.0); MEAN PLATELET VOLUME 9.8 fl (9.6-12.3); MONO # 0.7 10*3/uL (0.1-1.0); MONO % 9.6 % (3.0-9.0); NEUT # 3.2 10*3/uL (2.3-7.9); NEUT % 45.9 % (47.0-73.0); PLATELET COUNT AUTOMATED 241 10*3/uL (130-400); RED BLOOD COUNT 3.42 10*6/uL (4.10-5.10); RED CELL DISTRI WIDTH 13.1 % (0-14.5); WHITE BLOOD COUNT 6.9 10*3/uL (4.8-10.8)
[2024-08-08 06:31] LABS: POTASSIUM 4.3 mmol/L (3.4-5.1)
[2024-08-08] MEDS ORDERED: MIDODRINE HCL2.5 MG PO (07:42)
[2024-08-08 08:00] VITALS: BP 153/69
[2024-08-08 12:00] VITALS: BP 147/58
[2024-08-08] MEDS ORDERED: Iodixanol 320 100 ML VIAL IV ONE (12:15)
[2024-08-08] MEDS ORDERED: SODIUM CHLORIDE 0.9% 100 ML BAG IV ONE (12:15)
== END 2024-08-08 16:08 | disposition home or self-care (01) | DRG 74 ==
LOC: ED 16:48 → 4E 21:04 → EDHOLD 21:04 → 4E 08-07 00:38
PROVIDERS: Emergency Medicine; Internal Medicine; ADMIT Internal Medicine; ATTEND Internal Medicine
DX: G90.9 Disorder of the autonomic nervous system, unspecified (principal); E87.1 Hypo-osmolality and hyponatremia; N18.4 Chronic kidney disease, stage 4 (severe); I95.1 Orthostatic hypotension; I44.7 Left bundle-branch block, unspecified; S09.8XXA Other specified injuries of head, initial encounter; E11.65 Type 2 diabetes mellitus with hyperglycemia; K21.9 Gastro-esophageal reflux disease without esophagitis; I65.23 Occlusion and stenosis of bilateral carotid arteries; E11.22 Type 2 diabetes mellitus with diabetic chronic kidney disease; E78.5 Hyperlipidemia, unspecified; I12.9 Hypertensive chronic kidney disease with stage 1 through stage 4 chronic kidney disease, or unspecified chronic kidney disease; E03.9 Hypothyroidism, unspecified; Z88.6 Allergy status to analgesic agent; Z88.1 Allergy status to other antibiotic agents; Z88.8 Allergy status to other drugs, medicaments and biological substances; Z91.09 Other allergy status, other than to drugs and biological substances; Z79.899 Other long term (current) drug therapy; Z79.01 Long term (current) use of anticoagulants; Z79.2 Long term (current) use of antibiotics; Z90.49 Acquired absence of other specified parts of digestive tract; Z90.710 Acquired absence of both cervix and uterus; Z83.79 Family history of other diseases of the digestive system; Z80.8 Family history of malignant neoplasm of other organs or systems; W18.39XA Other fall on same level, initial encounter; Y93.89 Activity, other specified; Y92.89 Other specified places as the place of occurrence of the external cause; Y99.8 Other external cause status

== ENCOUNTER → 2024-09-19 | Outpatient (CLI) | payer MEDICARE, OTHER ==
[~2024-09-19] MED LIST changes: +24 HOUR ALLERG9.9 ML INH; +ATORVASTATIN CA20 M1 PO; +BIMATOPROST OP; +COLESTIPOL HYDRO1 GM PO; +HUMALOG100 UNIT/1 SC; +LEVOTHYROXINE75 MCG PO; +MIDODRINE HCL2.5 MG PO; +NORVASC5 MG PO
== END | disposition home or self-care (01) ==
LOC: LAB 14:44
PROVIDERS: ATTEND Internal Medicine
DX: R53.83 Other fatigue (principal); R53.1 Weakness; R51.9 Headache, unspecified

== ENCOUNTER → 2024-11-12 | Outpatient (CLI) | payer MEDICARE, OTHER ==
[2024-11-12 14:55] LABS: BASO # 0.1 10*3/uL (0.0-0.1); BASO % 0.8 % (0.0-1.0); EOS # 0.2 10*3/uL (0.0-0.4); EOS % 2.2 % (1.0-4.0); HEMATOCRIT 37.8 % (37.0-47.0); MEAN CELL VOLUME 97.2 fl (81.0-99.0); MEAN CORPUSCULAR HGB 31.6 pg (27.0-31.0); MEAN CORPUSCULAR HGB CONC 32.5 g/dl (33.0-37.0); MEAN PLATELET VOLUME 9.4 fl (9.6-12.3); MONO # 0.5 10*3/uL (0.1-1.0); MONO % 7.1 % (3.0-9.0); NEUT # 4.9 10*3/uL (2.3-7.9); NEUT % 64.8 % (47.0-73.0); PLATELET COUNT AUTOMATED 369 10*3/uL (130-400); RED BLOOD COUNT 3.89 10*6/uL (4.10-5.10); RED CELL DISTRI WIDTH 12.1 % (0-14.5); WHITE BLOOD COUNT 7.6 10*3/uL (4.8-10.8)
[2024-11-12 14:56] LABS: BILIRUBIN Negative (Negative); BLOOD Negative (Negative); CLARITY Clear (Clear); COLOR Yellow (Yellow); GLUCOSE Negative (Negative); KETONE Negative (Negative); LEUKO ESTERASE Trace (Negative); NITRITE Negative (Negative); UROBILINOGEN 0.2 E.U./dl (0.0-1.0)
[2024-11-12 15:09] LABS: BACTERIA 1+; MUCOUS TRACE; RBC 0-2 rbc/hpf (0-2)
[2024-11-12 16:16] LABS: POTASSIUM 4.2 mmol/L (3.4-5.1)
[2024-11-12 16:19] LABS: VITAMIN D, 25-HYDROXY 45.8 ng/mL (30-100)
== END | disposition home or self-care (01) ==
LOC: LAB 00:24
PROVIDERS: ATTEND Internal Medicine Nephrology
DX: N20.0 Calculus of kidney (principal); E11.21 Type 2 diabetes mellitus with diabetic nephropathy; M54.50 Low back pain, unspecified; N18.30 Chronic kidney disease, stage 3 unspecified; D63.1 Anemia in chronic kidney disease; N25.81 Secondary hyperparathyroidism of renal origin

== ENCOUNTER → 2025-01-07 | Outpatient (CLI) | payer MEDICARE, OTHER ==
[2025-01-07 15:26] LABS: BASO # 0.1 10*3/uL (0.0-0.1); BASO % 0.7 % (0.0-1.0); EOS # 0.1 10*3/uL (0.0-0.4); EOS % 1.7 % (1.0-4.0); HEMATOCRIT 38.3 % (37.0-47.0); MEAN CELL VOLUME 96.5 fl (81.0-99.0); MEAN CORPUSCULAR HGB 30.7 pg (27.0-31.0); MEAN CORPUSCULAR HGB CONC 31.9 g/dl (33.0-37.0); MEAN PLATELET VOLUME 9.5 fl (9.6-12.3); MONO # 0.7 10*3/uL (0.1-1.0); MONO % 9.8 % (3.0-9.0); NEUT # 3.9 10*3/uL (2.3-7.9); NEUT % 56.5 % (47.0-73.0); PLATELET COUNT AUTOMATED 268 10*3/uL (130-400); RED BLOOD COUNT 3.97 10*6/uL (4.10-5.10); RED CELL DISTRI WIDTH 12.3 % (0-14.5); WHITE BLOOD COUNT 6.9 10*3/uL (4.8-10.8)
[2025-01-07 15:50] LABS: POTASSIUM 5.1 mmol/L (3.4-5.1)
== END | disposition home or self-care (01) ==
LOC: LAB 15:03
PROVIDERS: ATTEND Physician Assistant
DX: N20.0 Calculus of kidney (principal)

== ENCOUNTER → 2025-07-13 | Outpatient (CLI) | payer MEDICARE, OTHER ==
[~2025-07-13] MED LIST changes: +ZENPEP DR 40,01 EAC1 PO
[2025-07-13 17:13] LABS: BASO # 0.1 10*3/uL (0.0-0.1); BASO % 0.9 % (0.0-1.0); EOS # 0.3 10*3/uL (0.0-0.4); EOS % 3.7 % (1.0-4.0); MEAN CELL VOLUME 97.6 fl (81.0-99.0); MEAN CORPUSCULAR HGB 31.2 pg (27.0-31.0); MEAN PLATELET VOLUME 10.0 fl (9.6-12.3); MONO # 0.6 10*3/uL (0.1-1.0); MONO % 8.6 % (3.0-9.0); NEUT # 4.2 10*3/uL (2.3-7.9); NEUT % 56.4 % (47.0-73.0); NUCLEATED RED BLOOD CELL 0.0 % (0.0-0.0); NUCLEATED RED BLOOD CELL 0.0 10*3/uL (0.0-0.0); PLATELET COUNT AUTOMATED 274 10*3/uL (130-400); RED CELL DISTRI WIDTH 12.5 % (0-14.5)
[2025-07-13 17:58] LABS: VITAMIN D, 25-HYDROXY 35.5 ng/mL (30-100)
[2025-07-13 17:59] LABS: BUN 45.0 mg/dl (9-23)
== END | disposition home or self-care (01) ==
LOC: LAB 15:54
PROVIDERS: ATTEND Internal Medicine Nephrology
DX: E11.22 Type 2 diabetes mellitus with diabetic chronic kidney disease (principal); N18.9 Chronic kidney disease, unspecified; N25.81 Secondary hyperparathyroidism of renal origin; N17.9 Acute kidney failure, unspecified; D63.1 Anemia in chronic kidney disease

== ENCOUNTER → 2025-07-22 | Outpatient (CLI) | payer MEDICARE, OTHER ==
[2025-07-22 15:30] LABS: BILIRUBIN Negative (Negative); BLOOD Negative (Negative); CLARITY Clear (Clear); COLOR Yellow (Yellow); KETONE Negative (Negative); LEUKO ESTERASE Trace (Negative); NITRITE Negative (Negative); PH 5.0 (4.5-8.0); SPECIFIC GRAVITY 1.010 (1.001-1.030); UROBILINOGEN 0.2 E.U./dl (0.0-1.0)
[2025-07-22 15:41] LABS: BACTERIA 1+; RBC 0-2 rbc/hpf (0-2)
[2025-07-22 15:42] LABS: COARSE GRANULAR CAST 0-2
== END | disposition home or self-care (01) ==
LOC: LAB 00:10
PROVIDERS: ATTEND Internal Medicine Nephrology
DX: E11.22 Type 2 diabetes mellitus with diabetic chronic kidney disease (principal); N18.9 Chronic kidney disease, unspecified; D63.1 Anemia in chronic kidney disease; N25.81 Secondary hyperparathyroidism of renal origin; N17.9 Acute kidney failure, unspecified